=== PATIENT | male | born 1955 | race Caucasian/White ===

== ENCOUNTER 2020-08-22 09:43 | Outpatient (REF) | payer SELFPAY ==
[2020-08-22 11:33] LABS: SARS COV2 IgG Negative (Negative)
== END 2020-08-22 09:44 | disposition home or self-care (01) ==
LOC: HO.LNC 09:43
PROVIDERS: Visit Provider Pathology Anatomic Pathology & Clinical Pathology
DX: Z20.828 Contact with and (suspected) exposure to other viral communicable diseases (principal)
CPT/HCPCS: 86769

== ENCOUNTER → 2020-10-20 12:14 | Outpatient (BNVA) | payer OTHER, SELFPAY | PROVIDERS: PCP Internal Medicine; Visit Provider Internal Medicine Cardiovascular Disease | DX: I25.10 Atherosclerotic heart disease of native coronary artery without angina pectoris (principal); E78.5 Hyperlipidemia, unspecified | CPT/HCPCS: 93005 ==

== ENCOUNTER → 2020-12-16 08:45 | Outpatient (BNVA) | payer OTHER, SELFPAY | PROVIDERS: PCP Internal Medicine; Visit Provider Urology | DX: N40.1 Benign prostatic hyperplasia with lower urinary tract symptoms (principal); E78.5 Hyperlipidemia, unspecified | CPT/HCPCS: 51798; 81002 ==

== ENCOUNTER 2021-01-26 09:39 | Outpatient (REF) | payer OTHER, SELFPAY ==
[2021-01-26 10:34] LABS: MANUAL DIFF FLAG NO
[2021-01-26 10:47] LABS: Basophils Percent Auto 0.4 % (0-2); Eosinophils Absolute Auto 0.1 X10*3/uL (0.0-0.4); Eosinophils Percent Auto 1.5 % (0-4); Hemoglobin 16.7 g/dl (14.0-18.0); Imm Gran Abs Auto 0.03 X10*3/uL (0.00-0.03); Imm Gran Pct Auto 0.6 % (0.0-0.4); Lymphocytes Absolute Auto 1.4 X10*3/uL (1.2-4.9); Lymphocytes Percent Auto 25.9 % (20-40); Mean Corpuscular HGB Conc 34.1 g/dl (31.0-36.0); Mean Corpuscular Hemoglobin 31.6 pg (27.0-33.0); Mean Corpuscular Volume 92.6 fL (80-98); Mean Platelet Volume 11.3 fL (9.4-12.4); Monocytes Absolute Auto 0.5 X10*3/uL (0.1-1.2); Monocytes Percent Auto 9.6 % (2-11); Neutrophils Absolute Auto 3.4 X10*3/uL (2.0-8.3); Platelet Count 171 X10*3/uL (160-400); Red Blood Count 5.29 X10*6/uL (4.60-5.80); White Blood Count 5.4 X10*3/uL (4.8-10.8)
[2021-01-26 11:18] LABS: Alanine Aminotransferase 23 U/L (0-40); Albumin Level 4.4 g/dL (3.5-5.0); Alkaline Phosphatase 102 U/L (39-117); Anion Gap 13 (12-20); Aspartate Amino Transferase 18 U/L (5-37); Bilirubin Total 1.1 mg/dL (0.0-1.0); Blood Urea Nitrogen 17 mg/dL (9-16); Calcium 10.1 mg/dL (8.4-10.2); Carbon Dioxide 28 mmol/L (22-29); Chloride 107 mmol/L (96-108); Cholesterol 130 mg/dL; Estimated Glomerular Filt Rate > 60; Glucose Random 104 mg/dL (60-115); HDL Cholesterol 49 mg/dL; LDL Cholesterol Calculated 63 mg/dl; Sodium 143 mmol/L (135-145); Total Protein 6.8 g/dL (6.5-8.0); Triglycerides 94 mg/dL
[2021-01-26 11:41] LABS: Free T4 (Free Thyroxine) 0.91 ng/dL (0.71-1.85); Prostate Specific Antigen Scr 0.29 ng/mL (<0.05-4.0); Thyroid Stimulating Hormone 5.05 uIU/mL (0.32-4.0)
[2021-01-26 12:04] LABS: Folate 16.6 ng/mL (> or = 4.0); Vitamin B12 750 pg/mL (200-900)
[2021-02-07 14:21] LABS: Testosterone, Total 438 ng/dL (250-1100)
== END 2021-01-26 09:40 | disposition home or self-care (01) ==
LOC: HO.LAB 09:39
PROVIDERS: PCP Internal Medicine; Visit Provider Internal Medicine
DX: I25.10 Atherosclerotic heart disease of native coronary artery without angina pectoris (principal); E78.00 Pure hypercholesterolemia, unspecified; N40.1 Benign prostatic hyperplasia with lower urinary tract symptoms; R35.0 Frequency of micturition
CPT/HCPCS: 36415; 80053; 80061; 82607; 82746; 84153; 84403; 84439; 84443; 85025

== ENCOUNTER 2021-05-05 12:04 | Outpatient (REF) | payer OTHER, SELFPAY ==
[2021-05-05 13:58] LABS: Free T4 (Free Thyroxine) 1.08 ng/dL (0.71-1.85); Thyroid Stimulating Hormone 3.72 uIU/mL (0.32-4.0)
== END 2021-05-05 12:05 | disposition home or self-care (01) ==
LOC: HO.10HDL 12:04
PROVIDERS: Visit Provider Internal Medicine
DX: R79.89 Other specified abnormal findings of blood chemistry (principal)
CPT/HCPCS: 36415; 84439; 84443

== ENCOUNTER 2021-12-16 09:08 | Outpatient (REF) | payer OTHER, SELFPAY ==
[2021-12-23 00:16] LABS: Acetylcholine Receptor Binding <0.30 nmol/L
[2021-12-24 23:31] LABS: Acetylcholine Recept. Blocking <15 (<15)
[2021-12-29 22:21] LABS: Acetylcholine Recep Modulating 1
== END 2021-12-16 09:09 | disposition home or self-care (01) ==
LOC: HO.LAB 09:08
PROVIDERS: PCP Internal Medicine; Visit Provider Psychiatry & Neurology Neurology
DX: H53.2 Diplopia (principal)
CPT/HCPCS: 36415; 83519

== ENCOUNTER → 2021-12-17 08:27 | Outpatient (BNVA) | payer OTHER, SELFPAY | PROVIDERS: PCP Internal Medicine; Visit Provider Urology | DX: N40.1 Benign prostatic hyperplasia with lower urinary tract symptoms (principal); R35.0 Frequency of micturition | CPT/HCPCS: 51798 ==

== ENCOUNTER 2021-12-31 14:19 | Outpatient (REF) | payer OTHER, SELFPAY ==
--- NOTE | ~2021-12-31 | CT_ITS ---
EXAMINATION: CT ANGIOGRAM BRAIN, HEAD CLINICAL INFORMATION: Diplopia. COMPARISON: None available. TECHNIQUE: Test bolus sequences followed by intravenous administration 75 mL of Omnipaque 350 intravenous contrast. Helical imaging was performed in the axial plane from the skull base to the vertex. Delayed postcontrast imaging of the head was also performed. The data was processed at the ct scan technologist workstation for generation of MIP sequences. Three-dimensional volume rendered reformatted images were also generated at an offline 3-D workstation. The degree of stenosis determined by NASCET criteria. This CT examination was performed using dose optimization techniques as appropriate, variously including the following: *Automated exposure control *Adjustment of mA and/or kV according to patient size (this includes techniques or standardized protocols for targeted exams where dose is matched to indication/reason for exam; i.e. extremities or head) *Use of iterative reconstruction technique FINDINGS: There is a 1.9 cm enhancing extra-axial mass sharing a broad dural attachment with the dorsal left petromastoid ridge located anterior to the left cerebellar hemisphere, most compatible with a meningioma. No additional enhancing lesions intracranially. There is no intracranial hemorrhage, hydrocephalus, extra-axial surface collection, midline shift, or other herniation pattern. Reyes to white matter differentiation is diffusely maintained without evidence of an evolved acute territorial infarct. The basilar cisterns are preserved. No significant soft tissue abnormality. No acute osseous abnormality. The paranasal sinuses and the mastoid air cells are well aerated. The intradural right vertebral artery ends as the PICA, an anatomic variant. No significant arterial stenoses in no acute arterial occlusions intracranially. No aneurysms and no high flow vascular malformations appreciated. CT/CT angio head IMPRESSION: - There is a 1.9 cm enhancing extra-axial mass sharing a broad dural attachment with the dorsal left petromastoid ridge located anterior to the left cerebellar hemisphere, most compatible with a meningioma. - Otherwise unremarkable CTA of the head.
[2021-12-31 14:05] LABS: Blood Urea Nitrogen 15 mg/dL (9-16); Estimated Glomerular Filt Rate > 60
[2021-12-31] MEDS: iohexoL 350 MG/ML 100 ML INFUS..BTL IV (15:13)
== END 2021-12-31 14:20 | disposition home or self-care (01) ==
LOC: HO.CT 14:19
PROVIDERS: Visit Provider Psychiatry & Neurology Neurology
DX: H53.2 Diplopia (principal)
CPT/HCPCS: 36415; 70496; 82565; 84520; Q9967

== ENCOUNTER 2022-01-06 18:41 | Outpatient (REF) | payer OTHER, SELFPAY ==
--- NOTE | ~2022-01-06 | MR_ITS ---
MR BRAIN WITHOUT AND WITH CONTRAST CLINICAL INFORMATION: Left posterior fossa lesion. COMPARISON: CTA head December 31, 2021. TECHNIQUE: Multiplanar, multisequence MRI of the brain was obtained before and after the intravenous administration of 8 mL of Gadavist. FINDINGS: There is a stable appearing 1.7 cm x 1.2 cm x 1.9 cm homogeneously enhancing extra-axial mass along the dorsal left mastoid ridge slightly deforming the anterior aspect of the left cerebellum that is most compatible with a meningioma. There is no adjacent parenchymal edema. Mild chronic microangiopathy. There is no hydrocephalus, extra-axial surface collection, or herniation. The major flow voids at the skull base are preserved. There is no acute infarct on diffusion-weighted imaging. There is no intracranial hemorrhage on the gradient recalled echo acquisition. The midline structures are normal. The cerebellar tonsils are normally positioned. The cerebellum and brainstem are normal. The craniocervical junction is normal. Osseous marrow signal intensity is homogenous. The visualized soft tissues are unremarkable. There is moderate mucosal thickening within the dominant sphenoid sinus. MR/MR head/brain wo/w con IMPRESSION: There is a stable appearing 1.9 cm homogeneously enhancing extra-axial mass along the dorsal left mastoid ridge slightly deforming the anterior aspect of the left cerebellum that is most compatible with a meningioma. There is no adjacent parenchymal edema.
== END 2022-01-06 18:42 | disposition home or self-care (01) ==
LOC: HO.MRI 18:41
PROVIDERS: Visit Provider Psychiatry & Neurology Neurology
DX: M89.9 Disorder of bone, unspecified (principal)
CPT/HCPCS: 70553; A9585

== ENCOUNTER 2022-01-14 12:41 | Outpatient (REF) | payer OTHER, SELFPAY ==
--- NOTE | 2022-01-14 16:24 | MHC.AU.ANR ---
Adult Audiological Evaluation Date of Visit: 01/14/22 Reason for Appointment: Mr. Zavaleta was seen today for an audiological evaluation. He notes that last week he was diagnosed with a meningioma in the left side of his brain. His physician recommended an audiological evaluation to determine if the meningioma is affecting his hearing in the left ear. Mr. Zavaleta notes that he's recently been having diplopia, which prompted the MRI and finding of the meningioma. His physician has determined that the meningioma is not likely to be causing diplopia. There is also concern for Myasthenia Gravis (MG). Mr. Zavaleta notes that initial bloodwork/antibody testing is not suggestive of MG, but further testing will be done to make a better determination. Mr. Zavaleta denies any significant concerns for his hearing. He feels he typically hears well, but occasionally will have to ask his for repetition. 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 Mr. Zavaleta notes that over the past 20 years he has been consistently using hearing protection devices whenever he is in the presence of loud noise. He does not notice any differences in hearing sensitivity between his ears. He notes very mild tinnitus in both ears, that he only notices in quiet situations when he is thinking about it. Does patient feel they have a hearing loss?: No Has hearing been tested previously?: Yes Previous Hearing Test Results: Patients reports having a hearing evaluation 30 years ago that indicated normal hearing sensitivity. Previous results not available for review today. Ear History: Tinnitus/Ringing/Noises in Ears: Very mild, both ears History of occupational noise exposure?: Yes: Contractor, 40+ years Medical History: Medical History: Measles, Meningioma, diplopia Allergies: NKA Medication List: Doxycycline, Flomax, Atorvastatin, Vitamin D3 Otoscopy: Right Ear: Unremarkable Left Ear: Unremarkable Tympanometry: Tympanometry performed due to: To assess integrity of the middle ear system Right Ear: Normal Middle Ear System (Type A) Left Ear: Normal Middle Ear System (Type A) Hearing Evaluation: Transducer(s) Used: Insert Earphones, Bone Conduction Method: Conventional Audiometry Stimuli Used: Pure Tones Right Ear: Description of Hearing: Normal hearing from 250-3000 Hz, sloping to a mild sensorineural 4000 Hz, rising to normal hearing from 7175-5254 Hz. Left Ear: Description of Hearing: Normal hearing from 250-3000 Hz, sloping to a moderate sensorineural hearing loss at 4000 Hz, rising to a mild hearing loss at 6000 Hz, and normal hearing at 8000 Hz. Hearing in the left ear is worse than the right ear by 25 dBHL at 4000 Hz and 15 dBHL at 6000 Hz. Speech Recognition Threshold (SRT): Method Used: Monitored Live Voice Stimuli Used: Spondee Words Right Ear: 15 dBHL Left Ear: 5 dBHL Word Discrimination: Method: Recorded Lists Word Lists Used: NU-6 Right Ear: 100% at 55 dBHL Left Ear: 96% at 60 dBHL Interpretation of Results: Asymmetrical high-frequency sensorineural hearing loss, left ear worse than right. It is possible that patient's meningioma is impacting his hearing in the left ear, though today's testing is not able to determine causality of Mr. Zavaleta's hearing loss. Recommendations: Audiological re-evaluation in one year to monitor asymmetrical hearing loss, or sooner if changes in hearing are noted or new symptoms arise. Amplification is not warranted at this time. Diagnosis: Primary Diagnosis: H90.3 Bilateral Sensorineural Hearing Loss Services Performed: Services Performed: Comprehensive Audiological Evaluation (CPT 04163) Tympanometry (CPT 52052) Signature: Provider: Oneal Arreguin, CCC-A
== END 2022-01-14 12:42 | disposition home or self-care (01) ==
LOC: HO.SH 12:41
PROVIDERS: Visit Provider Psychiatry & Neurology Neurology
DX: Z01.118 Encounter for examination of ears and hearing with other abnormal findings (principal); H90.3 Sensorineural hearing loss, bilateral
CPT/HCPCS: 92557; 92567

== ENCOUNTER 2022-01-27 11:09 | Outpatient (REF) | payer OTHER, SELFPAY ==
[2022-01-27 11:51] LABS: MANUAL DIFF FLAG NO
[2022-01-27 13:22] LABS: Basophils Percent Auto 0.4 % (0-2); Eosinophils Absolute Auto 0.1 X10*3/uL (0.0-0.4); Eosinophils Percent Auto 0.7 % (0-4); Hemoglobin 16.5 g/dl (14.0-18.0); Imm Gran Abs Auto 0.02 X10*3/uL (0.00-0.03); Imm Gran Pct Auto 0.3 % (0.0-0.4); Lymphocytes Absolute Auto 1.3 X10*3/uL (1.2-4.9); Lymphocytes Percent Auto 17.6 % (20-40); Mean Corpuscular HGB Conc 34.4 g/dl (31.0-36.0); Mean Corpuscular Hemoglobin 30.9 pg (27.0-33.0); Mean Corpuscular Volume 89.9 fL (80.0-98.0); Monocytes Absolute Auto 0.6 X10*3/uL (0.1-1.2); Monocytes Percent Auto 8.8 % (2-11); Neutrophils Absolute Auto 5.1 x10*3/uL (2.0-8.3); Neutrophils Percent Auto 72.2 % (45-73); Platelet Count 156 X10*3/uL (160-400); Red Blood Count 5.34 X10*6/uL (4.60-5.80); Red Cell Distribution Width 11.9 % (11.0-16.0); White Blood Count 7.1 X10*3/uL (4.8-10.8)
[2022-01-27 13:54] LABS: Alanine Aminotransferase 20 U/L (0-40); Albumin Level 4.2 g/dL (3.5-5.0); Alkaline Phosphatase 98 U/L (39-117); Anion Gap 13 (12-20); Aspartate Amino Transferase 20 U/L (5-37); Bilirubin Total 0.9 mg/dL (0.0-1.0); Blood Urea Nitrogen 14 mg/dL (9-16); Calcium 10.2 mg/dL (8.4-10.2); Carbon Dioxide 29 mmol/L (22-29); Chloride 105 mmol/L (96-108); Cholesterol 132 mg/dL; Estimated Glomerular Filt Rate > 60; Glucose Random 98 mg/dL (60-115); HDL Cholesterol 50 mg/dL; LDL Cholesterol Calculated 65 mg/dl; Potassium 5.2 mmol/L (3.3-5.1); Sodium 142 mmol/L (135-145); Total Protein 6.8 g/dL (6.5-8.0); Triglycerides 89 mg/dL
[2022-01-27 14:08] LABS: Estimated Average Glucose 114 mg/dL; Hemoglobin A1c % 5.6 %
[2022-01-27 14:18] LABS: Free T4 (Free Thyroxine) 1.06 ng/dL (0.71-1.85); Prostate Specific Antigen Scr 0.16 ng/mL (<0.05-4.0); Thyroid Stimulating Hormone 4.72 uIU/mL (0.32-4.0)
[2022-01-27 16:21] LABS: Folate 15.7 ng/mL (> or = 4.0); Vitamin B12 705 pg/mL (200-900)
== END 2022-01-27 11:10 | disposition home or self-care (01) ==
LOC: HO.LAB 11:09
PROVIDERS: PCP Internal Medicine; Visit Provider Internal Medicine
DX: Z12.5 Encounter for screening for malignant neoplasm of prostate (principal); I25.10 Atherosclerotic heart disease of native coronary artery without angina pectoris; R73.02 Impaired glucose tolerance (oral); E78.00 Pure hypercholesterolemia, unspecified
CPT/HCPCS: 36415; 80053; 80061; 82607; 82746; 83036; 84153; 84439; 84443; 85025

== ENCOUNTER 2022-02-15 12:54 | Outpatient (REF) | payer OTHER, SELFPAY ==
--- NOTE | ~2022-02-15 | CT_ITS ---
EXAMINATION: CT CHEST WITHOUT CONTRAST CLINICAL INFORMATION: Solitary pulmonary nodule. COMPARISON: CT scan of the chest dated 04/18/2019, 04/19/2018. CT Calcium Scoring dated 10/18/2017. TECHNIQUE: Multidetector volumetric CT imaging of the chest was obtained noncontrast. Sagittal and coronal reformations were obtained. This CT examination was performed using dose optimization techniques as appropriate, variously including the following: *Automated exposure control *Adjustment of mA and/or kV according to patient size (this includes techniques or standardized protocols for targeted exams where dose is matched to indication/reason for exam; i.e. extremities or head) *Use of iterative reconstruction technique DLP: 162.2 mGy-cm. FINDINGS: LUNGS: Again seen are several scattered bilateral calcified granulomas. Previously identified solid noncalcified pulmonary nodules are also seen, unchanged dating back to 04/19/2018, consistent with benign findings, including the following are seen on series 7: Right upper lobe -3 mm solid noncalcified nodule along the periphery of an airway, image 217. -4 mm solid noncalcified nodule in the inferolateral periphery, image 256. Based on the left major fissure -4 mm solid noncalcified nodule, likely a fissural based lymph node, image 297. Right middle lobe -6 mm solid noncalcified nodule, image 399. Left lower lobe -3 mm solid noncalcified nodule in the lateral base, image 404. No significant new or enlarging focal lung nodule or mass. No effusion or pneumothorax. Central airways patent. LYMPHOVASCULAR STRUCTURES: Aortic and heart size normal. Trace pericardial fluid, likely physiologic. Mild left anterior descending coronary artery calcifications. No mediastinal, hilar or axillary adenopathy or free fluid collection. THYROID GLAND: Unremarkable to the extent included. UPPER ABDOMEN: Scattered circumscribed low-attenuation masses in the liver again seen, unchanged dating back to 04/18/2019, consistent with benign findings, likely cysts. Included portions of the solid organs in the upper abdomen otherwise unremarkable. BONES: Mild S-shaped thoracic scoliosis and minimal vertebral endplate spurring seen in the mid and lower thoracic spine. There is mild anterior T7 and T8 vertebral body height loss, unchanged from prior exam. Multiple Schmorl's nodes are seen in the mid and lower thoracic spine. Findings may represent sequelae of Scheuermann's disease. No suspicious focal findings. CT/CT chest wo con IMPRESSION: 1. No significant change in scattered bilateral calcified and noncalcified granulomas dating back to 04/19/2018. Majority of findings were also included on the prior calcium scoring CT scan from 10/18/2017. This long-term stability and findings is consistent with benign pulmonary nodules. Per the Fleischner criteria, no additional follow-up is warranted. 2. No new or enlarging pulmonary nodule or mass. 3. Mild left anterior descending coronary artery calcifications. 4. Long-term stable low-attenuation masses in the liver, consistent with benign findings, likely cysts.
== END 2022-02-15 12:55 | disposition home or self-care (01) ==
LOC: HO.CT 12:54
PROVIDERS: Visit Provider Internal Medicine
DX: R91.1 Solitary pulmonary nodule (principal)
CPT/HCPCS: 71250

== ENCOUNTER 2022-07-19 08:01 | Outpatient (REF) | payer OTHER, SELFPAY ==
--- NOTE | ~2022-07-19 | MR_ITS ---
EXAMINATION: MR BRAIN WITHOUT AND WITH CONTRAST CLINICAL INFORMATION: Follow-up benign neoplasm of the meninges. COMPARISON: Brain MRI from 01/06/2022 TECHNIQUE: Multiplanar, multisequence imaging of the brain was performed without and with intravenous administration of 7.5 mL of Gadavist. FINDINGS: A presumed meningioma with homogeneous enhancement and T2 isointense to adjacent brain parenchyma is stable along the dorsal left petrous bone in the posterior fossa, measuring approximately 1.5 x 1.4 x 1.6 cm in size. No edema is seen in the left cerebellar hemisphere or left middle cerebellar peduncle. No diffusion abnormalities are identified to suggest an acute infarct. The ventricles are normal in size. No new mass effect or midline shift is seen. No brain parenchymal signal abnormality is noted. No extra-axial fluid collections are seen. The brainstem is normal. No abnormal parenchymal enhancement evident. There is nonspecific minimal linear right frontoparietal pachymeningeal enhancement which was not present on the previous exam. The gradient refocused acquisition is normal. The craniovertebral junction, marrow signal, and midline structures are normal. The major intracranial flow voids at the level of the [place] are preserved. The dural venous sinus flow voids are maintained. The mastoid air cells are well aerated. There is chronic significant mucosal thickening in the right sphenoid sinus cavity, also noted on the prior exam. MR/MR head/brain wo con IMPRESSION: 1. Stable presumed meningioma in the left aspect of the posterior fossa without mass effect or parenchymal edema. 2. New minimal linear right frontoparietal pachymeningeal enhancement of indeterminate clinical significance. Otherwise, no acute process. 3. Chronic severe right sphenoid sinus disease.
[2022-07-19 08:41] LABS: Anion Gap 16 (12-20); Blood Urea Nitrogen 15 mg/dL (9-16); Calcium 9.8 mg/dL (8.4-10.2); Carbon Dioxide 26 mmol/L (22-29); Chloride 104 mmol/L (96-108); Estimated Glomerular Filt Rate > 60; Glucose Random 123 mg/dL (60-115); Potassium 5.2 mmol/L (3.3-5.1); Sodium 141 mmol/L (135-145)
[2022-07-19 09:05] LABS: Free T4 (Free Thyroxine) 1.19 ng/dL (0.71-1.85); Thyroid Stimulating Hormone 4.88 uIU/mL (0.32-4.0)
== END 2022-07-19 08:02 | disposition home or self-care (01) ==
LOC: HO.MRI 08:01
PROVIDERS: Visit Provider Internal Medicine
DX: R79.89 Other specified abnormal findings of blood chemistry (principal); D32.9 Benign neoplasm of meninges, unspecified
CPT/HCPCS: 36415; 70551; 80048; 84439; 84443; A9585

== ENCOUNTER → 2022-10-21 14:34 | Outpatient (BNVA) | payer OTHER, SELFPAY | PROVIDERS: PCP Internal Medicine; Referring Provider Internal Medicine; Visit Provider Internal Medicine Cardiovascular Disease | DX: I25.10 Atherosclerotic heart disease of native coronary artery without angina pectoris (principal) | CPT/HCPCS: 93005 ==

== ENCOUNTER → 2022-12-23 13:17 | Outpatient (BNVA) | payer OTHER, SELFPAY | PROVIDERS: PCP Internal Medicine; Visit Provider Urology | DX: N40.1 Benign prostatic hyperplasia with lower urinary tract symptoms (principal); N13.8 Other obstructive and reflux uropathy; R35.0 Frequency of micturition; N48.6 Induration penis plastica; Z79.82 Long term (current) use of aspirin; Z79.899 Other long term (current) drug therapy | CPT/HCPCS: 51798 ==

== ENCOUNTER 2023-01-10 09:36 | Day surgery (SDC) | payer OTHER, SELFPAY ==
[2023-01-10 09:51] VITALS: BMI 24.3
[2023-01-10 10:20] VITALS: BP 171/98; PULSE 66; RESP 15; TEMP 36.6; O2SAT 98
[2023-01-10] MEDS: Lactated Ringers 1,000 ML 50 ML IVCONT (10:22)
--- NOTE | 2023-01-10 10:53 | HO.ANESPROP2 ---
[facility]LY [facility] Active Problems Active Problems: All Active Problems (Updated 01/10/23 @ 09:48 by Heaven Pierce, RN) Annual physical exam (Acute) Impaired glucose tolerance (Acute) Inguinal hernia unilateral, non-recurrent (Acute) TSH elevation (Acute) Meningioma (Acute) Callus of foot (Acute) Blood pressure elevated without history of HTN (Acute) Sphenoid sinusitis (Acute) Pulmonary nodule (Acute) Benign prostatic hyperplasia with lower urinary tract symptoms (Acute) CAD (coronary artery disease) (Acute) Hyperlipidemia (Acute) Past Medical History Medical History (Updated 01/10/23 @ 09:48 by Heaven Pierce, RN) Allergic rhinitis Benign prostatic hyperplasia with lower urinary tract symptoms CAD (coronary artery disease) DVT (deep venous thrombosis) Fatty liver Feeling of incomplete bladder emptying Fracture of right tibia and fibula History of meningioma Hx of diplopia Hyperlipidemia Peyronie's disease Psoriasis Pulmonary nodule Rosacea Vitamin D deficiency Family History Family History Father CVD (cardiovascular disease) Family history of problems with anesthesia: No Surgical History Surgical History (Updated 01/10/23 @ 09:48 by Heaven Pierce RN) History of prostate surgery History of tonsillectomy Hx of colonoscopy S/P Mohs surgery for basal cell carcinoma History of Problems with Anesthesia: No Social History Social History Housing: House Alcohol intake: current Alcohol intake frequency: a few times a month Patient Tobacco Use Status: Never used Tobacco e-Cigarette/Vaping Use: Never Used Second Hand Smoke Exposure: No Use of substances other than those prescribed or required for medical reasons: No Are you DNR?: No Advance Directives: No Advance Directives Information Provided: Yes Current occupational status: retired Cognitive needs: No Hearing needs: No Vision needs: Yes Meds Allergies Allergy/AdvReac Type Severity Reaction Status Date / Time No Known Allergies Allergy Verified 12/23/22 13:28 Active Medications: Current Medications Lactated Ringer's (Lr) 1,000 mls @ 50 mls/hr IVCONT .Q20H KEVIN Last Admin: 01/10/23 10:22 Dose: 50 mls/hr Sodium Biphosphate/Sodium Phosphate (Sodium Phosphate,[place]-Dibasic 133 Ml Enema) 133 ml NV ONCE PRN PRN Reason: Poor Colonoscopy Prep Results Home Medications Medication Instructions Recorded Confirmed Last Taken Type doxycycline hyclate 20 mg tablet 20 mg PO BID 01/26/21 10/21/22 Unknown History cholecalciferol (vitamin D3) 25 25 mcg PO DAILY 01/27/22 10/21/22 Unknown History mcg (1,000 unit) capsule cyanocobalamin (vitamin B-12) 1,000 mcg PO DAILY 01/27/22 10/21/22 Unknown History 1,000 mcg capsule folic acid-vitamin B6-vitamin B12 tab PO 01/27/22 10/21/22 Unknown History 2.3 mg-24.5 mg-2 mg tablet vitamin A 2,400 mcg capsule 2,400 mcg PO DAILY 01/27/22 10/21/22 Unknown History coenzyme Q10 50 mg capsule (Co 50 mg PO DAILY 03/22/22 10/21/22 Unknown History Q-10) vitamin E 200 unit capsule 200 unit PO DAILY 03/22/22 10/21/22 01/03/23 History vitamin K2 100 mcg capsule 100 mcg PO DAILY 03/22/22 10/21/22 Unknown History aspirin 81 mg tablet,delayed 81 mg PO .twice a week 10/21/22 10/21/22 01/03/23 History release (Adult Aspirin Regimen) Exam Exam Date and Time: January 10, 2023 1053 Height,Weight and Vital Signs: Height 5 ft 9 in Weight 74.843 kg Last Vital Signs Temp 97.8 F 01/10/23 10:20 Pulse 66 01/10/23 10:20 Resp 15 01/10/23 10:20 BP 171/98 H 01/10/23 10:20 Pulse Ox 98 01/10/23 10:20 O2 Del Method Room Air 01/10/23 10:20 Airway Mallampati Class: II Neck ROM: Full Heart: rr Lungs: cta Assessment and Plan Assessment Anesthesia Assessment: Anesthesia Plan Discussed and Chart Reviewed Final Anesthetic Review Family History of Problems with Anesthesia: No History of Problems with Anesthesia: No NPO: Yes ASA Class: II Final Preanesthetic Review: No Changes in Pt Med Stat, Meds/Allgs Chart Reviewed, Consent Obtained/Reviewed and Anes Risks/Benef Reviewed Patient Risk: Low Procedure Risk: Low Anesthetic Plan Anesthetic Plan: MAC: Disposition: Standard PACU
[2023-01-10 11:30] VITALS: BP 73/42; PULSE 48; RESP 16; TEMP 36.1; O2SAT 95
--- NOTE | 2023-01-10 11:33 | P.BOP_ITS ---
Brief Operative Note Date of Service: 01/10/23 Pre-op diagnosis: Dysphagia, screening Post-op diagnosis: other (Esophageal ring, GERD, Hiatal hernia, Polyps) Procedure: EGD with Balloon Dilation with an 18-19-20mm balloon, and biopsies; Colonoscopy to the cecum with hot snare polypectomy x 3 and bx/removal of polyp x 1. Surgeon: Seb Nunez Anesthesia: MAC Was an Wood Tank Builder used for this Procedure?: No Estimated blood loss (mL): 2.0 Pathology: other (A. Gastric antrum B. EG Junction at 39cm C. Ascending colon polyps D. Transverse colon polyps) Condition: stable Disposition: PACU
[2023-01-10 11:44] VITALS: BP 111/64; PULSE 43; RESP 16; O2SAT 98
[2023-01-10 11:58] VITALS: BP 118/67; PULSE 44; RESP 14; TEMP 36.2; O2SAT 98
--- NOTE | 2023-01-10 15:30 | OP_ITS ---
DATE OF SERVICE: 01/10/2023 SURGEON: Seb Nunez MD INDICATIONS: The patient presents for evaluation of intermittent dysphagia, personal history of tubular adenomas of the colon, and colorectal cancer screening. Full consent has been obtained from him for this including risks of bleeding and perforation. PREOPERATIVE DIAGNOSIS: POSTOPERATIVE DIAGNOSIS: PROCEDURE PERFORMED: Esophagogastroduodenoscopy with balloon dilation of gastroesophageal junction and biopsies, and colonoscopy to the cecum with hot snare polypectomy x 3 and biopsy and removal of polyp. ESTIMATED BLOOD LOSS: COMPLICATIONS: ANESTHESIA: Monitored anesthesia care. ASSISTANTS: SPECIMENS: PREOPERATIVE DIAGNOSES: Dysphagia, personal history of tubular adenomas of the colon and colorectal cancer screening. POSTOPERATIVE DIAGNOSES: Dysphagia, personal history of tubular adenomas of the colon and colorectal cancer screening, nonobstructing esophageal ring, mild reflux, hiatal hernia, mild gastritis, colon polyps, diverticulosis and internal hemorrhoids. DESCRIPTION OF PROCEDURE: The patient was placed in the left lateral decubitus position. The Olympus video gastroscope was passed in the posterior oropharynx and upper esophagus under direct vision. The scope was passed slowly to the distal esophagus. The gastroesophageal junction appeared at 39 cm. This area was notable for some edema, what appeared to be a nonobstructing ring, some mild irregularity, and as well as some minimal friability. The scope easily entered into the stomach. There was a small hiatal hernia. Scope was advanced to the pylorus and the duodenum was cannulated to the descending portion. The duodenum including the bulb appeared normal without mass or ulceration. The scope was withdrawn back in the stomach. The gastric antrum has some areas of erythema, edema and friability. There were no erosions or ulcerations. There was good peristasis. The scope was retroflexed visualizing the proximal stomach carefully, which appeared normal, without any sign of mass or ulceration. The scope was straightened. Biopsies were obtained from the gastric antrum. The scope was withdrawn back in the esophagus. I did use a [employer] scientific incremental balloon to dilate the gastroesophageal junction from 18 mm to 19 mm to 20 mm at the recommended pressure for between 30 and 60 seconds each. Post-dilation, there was definitely some heme noted. I did obtain some biopsies of the EG junction at 39 cm as well. Proximal to this, esophageal mucosa appeared normal. Scope was withdrawn from the patient. He was turned around for the colonoscopy. The digital rectal exam revealed no abnormalities. The Olympus video pediatric colonoscope was entered into the rectum and advanced easily to the cecum. Once in the cecum, I did identify normal-appearing cecal pouch with appendiceal orifice, and a normal appearing ileocecal valve. There was transillumination of light deep in the right lower quadrant. The entire cecum and ileocecal valve appeared normal. The scope was then slowly withdrawn assessing all mucosal surfaces carefully. Prepration was excellent. In the proximal ascending colon there were two polyps approximately 6 or 8 mm in diameter. These were both removed by hot snare polypectomy and recovered by suction. The polypectomy site appeared clean, without any sign of residual polyp nor bleeding. In ttransverse colon was a 3 mm polyp removed by cold biopsy forceps. In the same area, there was an approximately 6 mm polyp which was removed by hot snare polypectomy and recovered by suction. The polypectomy site appeared clean, without any sign of residual polyp nor bleeding. I did not visualize any other polyps, colitis, nor angiodysplasia. There was a mild amount of sigmoid diverticulosis. In the rectum, the scope was retroflexed visualizing small internal hemorrhoids, but no other pathology. The rectal mucosa appeared normal. The scope was straightened out and withdrawn from the patient. He tolerated both procedures well and was returned to the recovery area in stable condition. IMPRESSION: 1. Mild nonobstructing distal esophageal ring, status post balloon dilation. 2. Mild gastroesophageal reflux. 3. Hiatal hernia. 4. Mild gastritis. 5. Colon polyps. 6. Diverticulosis. 7. Internal hemorrhoids. PLAN: The results of the biopsies will be checked. I would recommend a repeat colonoscopy in 5 years. Given the upper endoscopy findings and today's procedure, I will send him home with a prescription to use Omeprazole 20 mg daily for two months and then p.r.n. afterwards. He was advised not to use any aspirin nor NSAIDs for at least a week. If it turns out that he does need the omeprazole chcf, he can certainly continue that as well. MD MODESTO Vaca/REGGIE / [phone] MTDD
== END 2023-01-10 12:47 | disposition home or self-care (01) ==
PROVIDERS: PCP Internal Medicine; Visit Provider Internal Medicine
PROC: 0DJD8ZZ Inspection of Lower Intestinal Tract, Via Natural or Artificial Opening Endoscopic (ICD-10-PCS; CPT 45378; principal; 2023-01-10 10:30)
PROC: (CPT 45385; 2023-01-10 10:30)
DX: Z12.11 Encounter for screening for malignant neoplasm of colon (principal); D12.2 Benign neoplasm of ascending colon; D12.3 Benign neoplasm of transverse colon; K57.30 Diverticulosis of large intestine without perforation or abscess without bleeding; K64.8 Other hemorrhoids; Z86.010 Personal history of colon polyps; R13.19 Other dysphagia; K22.2 Esophageal obstruction; K21.9 Gastro-esophageal reflux disease without esophagitis; K29.70 Gastritis, unspecified, without bleeding; K44.9 Diaphragmatic hernia without obstruction or gangrene
CPT/HCPCS: 45385; 45380; 43249; 43239; 88305; 88342; C1726

== ENCOUNTER 2023-01-14 07:43 | Outpatient (REF) | payer OTHER, SELFPAY ==
--- NOTE | ~2023-01-14 | CT_ITS ---
EXAMINATION: CT MAXILLOFACIAL WITHOUT CONTRAST CLINICAL INFORMATION: Sinonasal polyp. COMPARISON: None. TECHNIQUE: Multidetector helical imaging was performed in the axial plane with generation of coronal and sagittal reformatted images. This CT examination was performed using dose optimization techniques as appropriate, variously including the following: *Automated exposure control *Adjustment of mA and/or kV according to patient size (this includes techniques or standardized protocols for targeted exams where dose is matched to indication/reason for exam; i.e. extremities or head) *Use of iterative reconstruction technique DLP: 110 mGy-cm. FINDINGS: The frontal sinuses are clear. The ethmoid air cells are clear. There is moderate circumferential lobular mucosal thickening along the right sphenoid sinus ceja with internal aerated secretions and opacification of the sphenoethmoidal recess. There is chronic osteitis of the sphenoid sinus ceja. The left sphenoid sinus is clear. There is mild lobular mucosal thickening along the left more than right maxillary sinus floors. The ethmoidal infundibula are patent. There is rightward deviation of the nasal septum. The ethmoid roofs are symmetric. The lamina papyracea are intact. The carotid impressions are covered with bone. No maxillary periapical disease is seen. The mastoid air cells and visualized middle ear cavities are well aerated. The orbits are normal. The TMJs are unremarkable. The imaged portions of the brain demonstrate no acute abnormality. CT/CT sinus wo IV con IMPRESSION: Moderate circumferential lobular mucosal thickening along the right sphenoid sinus ceja with internal aerated secretions and opacification of the sphenoethmoidal recess. 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 Mild lobular mucosal thickening along the left more than right maxillary sinus floors. Rightward deviation of the nasal septum.
== END 2023-01-14 07:44 | disposition home or self-care (01) ==
LOC: HO.CT 07:43
PROVIDERS: PCP Internal Medicine; Visit Provider Otolaryngology
DX: J33.0 Polyp of nasal cavity (principal)
CPT/HCPCS: 70486

== ENCOUNTER 2023-04-07 07:51 | Outpatient (REF) | payer OTHER, SELFPAY | END 2023-04-07 07:52 | disposition home or self-care (01) | LOC: HO.LAB 07:51 | PROVIDERS: PCP Internal Medicine; Visit Provider Internal Medicine | DX: Z12.5 Encounter for screening for malignant neoplasm of prostate (principal); I25.10 Atherosclerotic heart disease of native coronary artery without angina pectoris; R79.89 Other specified abnormal findings of blood chemistry; R73.02 Impaired glucose tolerance (oral); E78.00 Pure hypercholesterolemia, unspecified | CPT/HCPCS: 36415; 80053; 80061; 82607; 82746; 83036; 84153; 84439; 84443; 85025; 86376 ==

== ENCOUNTER 2023-04-15 11:20 | Outpatient (AMB) | payer OTHER, SELFPAY ==
[2023-04-15 11:23] VITALS: BP 152/78; PULSE 75; O2SAT 98; BMI 24.7
--- NOTE | 2023-04-15 11:23 | A.OFFPC_ITS ---
Vital Signs 04/15/23 11:23 Height 5 ft 9 in Weight 167 lb BMI 24.7 BP 152/78 H Blood Pressure Location Lt brachial Position Sitting Pulse 75 Pulse Source Pulse Oximeter Pulse Oximetry (%) 98 Oxygen Delivery Method Room Air Intake Visit Reasons: PE Allergies No Known Allergies Allergy (Verified 04/15/23 11:23) Medication List - Last Reconciled 04/15/23 by Radha Redmond MD aspirin (Adult Aspirin Regimen) 81 mg PO .twice a week atorvastatin 20 mg PO DAILY 90 days cholecalciferol (vitamin D3) 25 mcg PO DAILY coenzyme Q10 (Co Q-10) 50 mg PO DAILY cyanocobalamin (vitamin B-12) 1,000 mcg PO DAILY doxycycline hyclate 20 mg PO BID omeprazole 20 mg PO DAILY tamsulosin 0.4 mg PO BEDTIME 90 days vitamin A 2,400 mcg PO DAILY vitamin E 200 units PO DAILY vitamin K2 100 mcg PO DAILY Tobacco use date assessed: 03/16/23 Fall risk assessment: No Falls in past year Last assessed Fall Risk: 04/15/23 Dental Screening Dental Screen Date: 04/15/23 Did you have a dental visit in the last 12 months?: Yes Did you have a dental problem in the last 6 months where you did not have access to dental care?: No Was dental information given to patient?: Patient has dentist HPI PE HPI Details 68-year-old male with impaired glucose tolerance Sagastume's esophagus BPH coronary artery disease hypercholesterolemia last seen in March 2023. During that time noted to have an elevated blood pressure and was advised to follow up and monitor. Patient is here for physical exam colonoscopy is up-to-date. BP has been at home [facility] Medical History (Updated 03/16/23 @ 09:19 by Radha Redmond MD) Allergic rhinitis Benign prostatic hyperplasia with lower urinary tract symptoms CAD (coronary artery disease) DVT (deep venous thrombosis) Fatty liver Feeling of incomplete bladder emptying Fracture of right tibia and fibula History of meningioma Hx of diplopia Hyperlipidemia Peyronie's disease Psoriasis Pulmonary nodule Rosacea Vitamin D deficiency Surgical History (Updated 01/10/23 @ 09:48 by Heaven Pierce RN) History of prostate surgery History of tonsillectomy Hx of colonoscopy S/P Mohs surgery for basal cell carcinoma Family History (Updated 03/16/23 @ 09:01 by Delisa Wolf CMA) Father CVD (cardiovascular disease) Social History (Updated 04/15/23 @ 11:42 by Radha Redmond MD) Housing: House Alcohol intake: current Alcohol intake frequency: a few times a month Patient Tobacco Use Status: Never used Tobacco e-Cigarette/Vaping Use: Never Used Second Hand Smoke Exposure: No Current occupational status: retired Cognitive needs: No Hearing needs: No Vision needs: Yes Questionnaire PHQ-9 Over the last 2 weeks, how often have you been bothered by any of the following problems? 1. Little interest or pleasure in doing things: not at all 2. Feeling down, depressed, or hopeless: not at all 3. Trouble falling or staying asleep, or sleeping too much: not at all 4. Feeling tired or having little energy: not at all 5. Poor appetite or overeating: not at all 6. Feeling bad about yourself - or that you are a failure or have let yourself or your family down: not at all 7. Trouble concentrating on things, such as reading the newspaper or watching television: not at all 8. Moving or speaking so slowly that other people could have noticed. Or the opposite - being so fidgety or restless that you have been moving around a lot m ore than usual: not at all 9. Thoughts that you would be better off or of hurting yourself in some way: not at all Total score: 0 Depression Screening Interpretation: Negative Source: Developed by Drs. Seb Rausch, Franklyn Davenport and colleagues, with an educational joni from [employer]. Thrive Questionnaire Date Thrive assessed: 03/16/23 AUDIT C Alcohol Use Questionnaire (AUDIT-C) 1. How often do you have a drink containing alcohol?: 2-4 times a month 2. How many drinks containing alcohol do you have on a typical day when you are drinking?: 1 or 2 3. How often do you have six or more drinks on one occasion?: Never Total Score: 2 LEONOR-7 AMB Questionnaire LEONOR-7 Date LEONOR - 7 assessed: 03/16/23 Source: Developed by Drs. Seb Rausch, Franklyn Davenport and colleagues, with an educational joni from [employer]. Review of Systems Const Denies poor appetite and Denies weakness Eyes Denies no additional complaints ENT Reports Normal hearing present, Denies dizziness, Denies nasal congestion, Denies tinnitus and Denies sore throat Card Denies chest pain, Denies syncope, Denies rapid heart rate and Denies dyspnea Resp Denies cough and Denies dyspnea GI Denies change in stool character, Reports constipation, Denies diarrhea, Denies nausea and Denies vomiting Denies dysuria and Denies urinary frequency Neuro Reports Normal hearing present, Denies confusion, Denies dizziness, Denies syncope and Denies weakness Psych Denies confusion Physical exam (Primary Care) Vital Signs: Last Vital Signs Pulse 75 04/15/23 11:23 BP 152/78 H 04/15/23 11:23 Pulse Ox 98 04/15/23 11:23 Oxygen Delivery Method Room Air 04/15/23 11:23 BMI result Body Mass Index 24.7 Tobacco/Smoking Status: Tobacco use Status Tobacco use date assessed 03/16/23 04/15/23 11:29 Patient Tobacco Use Status Never used Tobacco 04/15/23 11:29 e-Cigarette/Vaping Use Never Used 04/15/23 11:29 PHQ-9: PHQ-9 Score PHQ-9: Total score 0 04/15/23 11:29 Depression Screening Interpretation: Negative Thrive Assessment: Date of Thrive Assessment Date Thrive assessed 03/16/23 04/15/23 11:29 Const General: No confusion Orientation/consciousness: No confusion HENMT Head: Yes normocephalic Ears: external ears normal and TM's normal bilaterally Face and sinus: Yes normal facial exam Mouth: moist mucous membranes Throat: Yes tonsils normal Eyes Conjunctivae: conjunctivae normal Pupils: Equal, round and reactive pupils present and Pupil accommodation reflex normal Direct Ophthalmoscopy: normal light reflex Neck Neck: No lymphadenopathy Thyroid: Thyroid normal Chest Chest palpation & inspection: normal inspection of the chest Resp Effort & Inspection: normal respiratory effort and no audible wheezes Auscultation: clear to auscultation bilaterally, no crackles, no wheezes and lung sounds not diminished Cardio Rate: regular rate Rhythm: regular rhythm Peripheral pulses: radial pulses present and dorsalis pedis present GI Other: PAtient has seen Urology and recent colon test Palpation (GI): no masses Auscultation: normal bowel sounds and normoactive bowel sounds Rectal Exam - Male: Yes deferred Other: declined Skin General skin exam: no rashes or lesions noted Rashes: no rashes Neuro General: No confusion Cranial nerves: Yes Equal, round and reactive pupils present and Yes Normal hearing present Cognition (Neuro): normal cognition Gait exam (Neuro): Normal gait present Motor exam (neuro): 5/5 motor strength present throughout Deep tendon reflexes (DTR's): Right brachioradialis reflex intensity grade: 2+, Left brachioradialis reflex intensity grade: 2+, Right patellar reflex intensity grade: 2+ and Left patellar reflex intensity grade: 2+ Extrem General: No edema Assessment and Plan Assessment & Plan (1) Annual physical exam: Code(s): Z00.00 - Encounter for general adult medical examination without abnormal findings (2) Barretts esophagus: Code(s): K22.70 - Sagastume's esophagus without dysplasia Plan: Avoid the foods that causes that usually spicy foods, tomato products, juices, coffee, soda and foods that your sensitive to. After eating do not lie down, allow 3-4 hours before in lie down. And keep the head of bed above 30 degrees to avoid the acid from going up. Patient takes omeprazole 20 mg once a day (3) Impaired glucose tolerance: Code(s): R73.02 - Impaired glucose tolerance (oral) Plan: Decrease the amount of carbohydrate intake, pasta, bread, rice and potatoes are all sugar and that is aside from all the sweet stuff, remember that fruits are good but they are Sweet also. Normal hemoglobin A1c (4) Blood pressure elevated without history of HTN: Code(s): R03.0 - Elevated blood-pressure reading, without diagnosis of hypertension Plan: Continue to monitor blood pressure (5) Benign prostatic hyperplasia with lower urinary tract symptoms: Comment: Dr. Lee Code(s): N40.1 - Benign prostatic hyperplasia with lower urinary tract symptoms Qualifiers: Lower urinary tract symptom detail: urinary frequency Qualified Code(s): N40.1 - Benign prostatic hyperplasia with lower urinary tract symptoms; R35.0 - Frequency of micturition Plan: Continue with present medication (6) CAD (coronary artery disease): Code(s): I25.10 - Atherosclerotic heart disease of [place] coronary artery without angina pectoris Qualifiers: Coronary Disease-Associated Artery/Lesion type: [place] artery [place] vs. transplanted heart: [place] heart Associated angina: without angina Qualified Code(s): I25.10 - Atherosclerotic heart disease of [place] coronary artery without angina pectoris Plan: Control the cholesterol, weight, blood pressure and continue with aspirin (7) Hyperlipidemia: Code(s): E78.5 - Hyperlipidemia, unspecified Qualifiers: Hyperlipidemia type: pure hypercholesterolemia Qualified Code(s): E78.00 - Pure hypercholesterolemia, unspecified Plan: Avoid fried foods, chicken skin, eggs, butter margarine, pastries and meat. Be it pork or beef they have a lot of cholesterol LDL goal less than 70 and triglyceride of less than 150 patient is on atorvastatin 20 mg once a day Orders: Orders Comprehensive Met. Panel 6 Months R7 - Other specified abnormal findings of blood chemistry Free T4 (Free Thyroxine) 6 Months R7 - Other specified abnormal findings of blood chemistry Thyroid Stimulating Hormone 6 Months R7 - Other specified abnormal findings of blood chemistry Coding Level of Care Code Est Pt Prev Care >65y(58267) Diagnoses Annual physical exam Z00.00 Barretts esophagus K22.70 Impaired glucose tolerance R73.02 Blood pressure elevated without history of HTN R03.0 Benign prostatic hyperplasia with lower urinary tract symptoms N40.1; R35.0 Lower urinary tract symptom detail: urinary frequency CAD (coronary artery disease) I25.10 Coronary Disease-Associated Artery/Lesion type: [place] artery [place] vs. transplanted heart: [place] heart Associated angina: without angina Hyperlipidemia E78.00 Hyperlipidemia type: pure hypercholesterolemia
== END 2023-04-15 12:03 | disposition home or self-care (01) ==
PROVIDERS: PCP Internal Medicine; Visit Provider Internal Medicine
DX: Z00.00 Encounter for general adult medical examination without abnormal findings (principal); K22.70 Barrett's esophagus without dysplasia; R73.02 Impaired glucose tolerance (oral); R03.0 Elevated blood-pressure reading, without diagnosis of hypertension; N40.1 Benign prostatic hyperplasia with lower urinary tract symptoms; R35.0 Frequency of micturition; I25.10 Atherosclerotic heart disease of native coronary artery without angina pectoris; E78.00 Pure hypercholesterolemia, unspecified
CPT/HCPCS: 99397

== ENCOUNTER 2023-08-03 11:09 | Outpatient (REF) | payer OTHER, SELFPAY ==
[2023-08-03 12:14] LABS: Blood Urea Nitrogen 15 mg/dL (9-16); Estimated Glomerular Filt Rate > 60
== END 2023-08-03 11:10 | disposition home or self-care (01) ==
LOC: HO.LAB 11:09
PROVIDERS: PCP Internal Medicine; Visit Provider Internal Medicine
DX: Z86.018 Personal history of other benign neoplasm (principal)
CPT/HCPCS: 36415; 82565; 84520

== ENCOUNTER 2023-08-04 11:16 | Outpatient (REF) | payer OTHER, SELFPAY ==
--- NOTE | ~2023-08-04 | MR_ITS ---
EXAMINATION: MR BRAIN WITHOUT AND WITH CONTRAST CLINICAL INFORMATION: Personal history of benign neoplasm. COMPARISON: Brain MRI 07/19/2022. TECHNIQUE: Multiplanar, multisequence imaging of the brain was performed before and after the intravenous administration of 7.5 mL of Gadavist. FINDINGS: There is redemonstration of an avidly enhancing extra-axial mass arising from the posterior aspect of the left petrous ridge, measuring 1.8 cm (craniocaudal dimension), unchanged compared with 07/19/2022. There is minimal mass effect on the adjacent cerebellum but no parenchymal edema is seen. There is no acute or chronic infarction, hemorrhage, or extra-axial fluid collection. The ventricles, sulci, and basilar cisterns are normal in size and configuration. Mild nonspecific foci of T2/FLAIR hyperintensity are seen within the cerebral white matter. The flow voids of the major intracranial arteries appear intact. The bones and extracranial soft tissues are within normal limits. Chronic inflammatory changes are seen within the left sphenoid sinus where there is circumferential mucosal thickening and internal aerated secretions. MR/MR head/brain wo/w con IMPRESSION: Stable exam compared with 07/19/2022. Stable appearance of the 1.8 cm meningioma arising from the posterior aspect of the left petrous ridge. Stable minimal mass effect. No vasogenic edema. No new or acute findings.
[2023-08-04] MEDS: gadobutroL 7.5 ML VIAL IVPUSH (12:12)
== END 2023-08-04 11:17 | disposition home or self-care (01) ==
LOC: HO.MRI 11:16
PROVIDERS: PCP Internal Medicine; Visit Provider Internal Medicine
DX: Z86.018 Personal history of other benign neoplasm (principal)
CPT/HCPCS: 70553; A9585

== ENCOUNTER 2023-09-29 10:33 | Outpatient (REF) | payer OTHER, SELFPAY ==
[2023-09-29 12:36] LABS: Alanine Aminotransferase 15 U/L (0-40); Albumin Level 3.8 g/dL (3.5-5.0); Alkaline Phosphatase 94 U/L (39-117); Anion Gap 10 (12-20); Aspartate Amino Transferase 17 U/L (5-37); Bilirubin Total 0.5 mg/dL (0.0-1.0); Blood Urea Nitrogen 16 mg/dL (9-16); Calcium 9.7 mg/dL (8.4-10.2); Carbon Dioxide 30 mmol/L (22-29); Chloride 106 mmol/L (96-108); Estimated Glomerular Filt Rate > 60; Glucose Random 105 mg/dL (60-115); Potassium 4.5 mmol/L (3.3-5.1); Sodium 141 mmol/L (135-145); Total Protein 6.4 g/dL (6.5-8.0)
[2023-09-29 12:43] LABS: Free T4 (Free Thyroxine) 1.08 ng/dL (0.71-1.85)
== END 2023-09-29 10:34 | disposition home or self-care (01) ==
LOC: HO.LAB 10:33
PROVIDERS: PCP Internal Medicine; Visit Provider Internal Medicine
DX: R79.89 Other specified abnormal findings of blood chemistry (principal)
CPT/HCPCS: 36415; 80053; 84439; 84443

== ENCOUNTER 2023-12-27 13:16 | Outpatient (AMB) | payer MEDICARE, SELFPAY ==
--- NOTE | 2023-12-27 13:23 | A.OFFVIS_ITS ---
Intake Intake Visit Reasons: 1Y PVR(Portal Confirmed) Intake Note: Patient is Present for Follow Up Urology Medication: Tamsulosin Antibiotic Allergies:None Blood Thinners: Aspirin Confirmed Pharmacy: [facility] PVR: 0 Allergies No Known Allergies Allergy (Verified 12/27/23 13:26) HPI HPI Comments History of Present Illness Details Seb VALIENTE is a very pleasant male. They are a patient of Dr Redmond. They are seen in the office today for the following urologic conditions. - lower urinary tract symptoms Prior prostate procedure 2009 Stable with Flomax 1 tab at night Has urge particularly when goes out in the cold Normal CHRIS Follow in 12 months Will try coming off alpha-melissa Lower Urinary Tract Symptoms: Current visit is for further evaluation of, lower urinary tract symptoms, predominate obstructive symptoms - worse in fall with warm/cold temp change Current treatment includes medication - flomax. Prior treatments include 2009 , procedure, laser procedure Prostate Symptom Score 12/18 , Mild (0-8), Bother 1 12/19 , Mild (0-8), Bother 1 PSA - 04/24 0.16 further followup not indicated Treatment plan continue with current medications PFSH Medical History Hx of diplopia History of meningioma Fracture of right tibia and fibula DVT (deep venous thrombosis) Rosacea Psoriasis Allergic rhinitis Fatty liver Pulmonary nodule Vitamin D deficiency Peyronie's disease Feeling of incomplete bladder emptying Benign prostatic hyperplasia with lower urinary tract symptoms CAD (coronary artery disease) Hyperlipidemia Surgical History Hx of colonoscopy History of tonsillectomy History of prostate surgery S/P Mohs surgery for basal cell carcinoma Family History Father CVD (cardiovascular disease) Social History Housing: House Alcohol intake: current Alcohol intake frequency: a few times a month Patient Tobacco Use Status: Never used Tobacco e-Cigarette/Vaping Use: Never Used Second Hand Smoke Exposure: No Current occupational status: retired Cognitive needs: No Hearing needs: No Vision needs: Yes Review of Systems Const Denies chills and Denies fever(s) Card Reports no additional complaints and Denies syncope Resp Denies cough GI Denies abdominal pain and Denies heartburn Reports as per HPI and Denies change in libido Neuro Denies syncope Psych Denies change in libido Endo Denies change in libido Physical Exam Const General: cooperative, healthy appearing, comfortable and no acute distress Orientation/consciousness: patient oriented x3 HEENT Face and sinus: Yes normal facial exam Mouth: moist mucous membranes Neck Neck: Yes normal visual inspection, Yes full ROM and Yes trachea midline Chest Chest palpation & inspection: normal inspection of the chest Resp Effort & Inspection: normal respiratory effort, able to speak in complete sentences and no respiratory distress GI Inspection: Yes normal to inspection Back/Spine/Pelvis Cervical Spine: normal cervical lordosis Thoracic/Lumbar Spine: thoracic and lumbar spine normal to inspection Skin General skin exam: no rashes or lesions noted Neuro General: patient oriented x3, gait normal, tone normal and moves all extremities Extrem General: Yes normal to inspection and Yes capillary refill normal Office Procedures Post Void Residual Post Residual Void Post Void Residual (PVR): 0 [id number] Void Residual by ultrasound Assessment & Plan Assessment & Plan (1) Benign prostatic hyperplasia with lower urinary tract symptoms: Comment: Dr. Lee Code(s): N40.1 - Benign prostatic hyperplasia with lower urinary tract symptoms Qualifiers: Lower urinary tract symptom detail: urinary frequency Qualified Code(s): N40.1 - Benign prostatic hyperplasia with lower urinary tract symptoms; R35.0 - Frequency of micturition Plan Twelve month follow-up PVR Orders: Orders AMB Post Void Residual by ultrasound Today N40.1 - Benign prostatic hyperplasia with lower urinary tract symptoms, R35.0 - Frequency of micturition Patient Instructions: Imaging studies, laboratory and physical exam results were discussed and reviewed in detail. No major barriers to patient understanding were identified. An opportunity to ask questions regarding the treatment plan was provided. All questions were answered. The patient expressed understanding and agreement with the above treatment plan. The patient is aware they should contact our office by phone for worsening of their current condition or the appearance of new urologic symptoms. Compliance is encouraged with any medications and followup testing that is ordered. It is a privilege to participate in the urologic care of your patient. If you have any questions or concerns regarding treatment for the above conditions, or other urologic issues, please do not hesitate to contact me. The office telephone contact is [phone]. This note is constructed using voice recognition software. While every effort has been made to ensure accuracy streetcar repairer errors may have been included. Yours sincerely, Dr Armando Lee MD, [facility] - Urology Providers of Expert, Compassionate Care for the Genitourinary System Coding Level of Care Code Est Pt Level 4 (93493) Diagnoses Benign prostatic hyperplasia with urinary frequency N40.1; R35.0 Lower urinary tract symptom detail: urinary frequency CPT Codes Post Residual Void - PVR CPT Code: 60677-[place]reb Void Residual by ultrasound ([id number])
== END 2023-12-27 13:52 | disposition home or self-care (01) ==
PROVIDERS: Visit Provider Urology
DX: N40.1 Benign prostatic hyperplasia with lower urinary tract symptoms (principal); R35.0 Frequency of micturition
CPT/HCPCS: 99213

== ENCOUNTER → 2023-12-27 13:16 | Outpatient (BNVA) | payer MEDICARE, SELFPAY | PROVIDERS: Visit Provider Urology | DX: N40.1 Benign prostatic hyperplasia with lower urinary tract symptoms (principal); R35.0 Frequency of micturition | CPT/HCPCS: 51798; 99212 ==

== ENCOUNTER 2024-04-11 08:04 | Outpatient (REF) | payer MEDICARE, SELFPAY ==
[2024-04-11 08:17] LABS: MANUAL DIFF FLAG NO
[2024-04-11 09:05] LABS: Basophils Percent Auto 0.5 % (0-2); Eosinophils Absolute Auto 0.1 X10*3/uL (0.0-0.4); Eosinophils Percent Auto 1.7 % (0-4); Hematocrit 47.5 % (42.0-52.0); Hemoglobin 16.2 g/dl (14.0-18.0); Imm Gran Abs Auto 0.01 X10*3/uL (0.00-0.03); Imm Gran Pct Auto 0.2 % (0.0-0.4); Lymphocytes Absolute Auto 1.9 X10*3/uL (1.2-4.9); Lymphocytes Percent Auto 32.9 % (20-40); Mean Corpuscular HGB Conc 34.1 g/dl (31.0-36.0); Mean Corpuscular Volume 93.7 fL (80.0-98.0); Mean Platelet Volume 10.9 fL (9.4-12.4); Monocytes Absolute Auto 0.6 X10*3/uL (0.1-1.2); Neutrophils Absolute Auto 3.1 x10*3/uL (2.0-8.3); Neutrophils Percent Auto 54.7 % (45-73); Platelet Count 156 X10*3/uL (160-400); Red Blood Count 5.07 X10*6/uL (4.60-5.80); Red Cell Distribution Width 12.4 % (11.0-16.0); White Blood Count 5.7 X10*3/uL (4.8-10.8)
[2024-04-11 09:24] LABS: Estimated Average Glucose 105 mg/dL; Hemoglobin A1C 149.0148 umol/L; Hemoglobin A1c % 5.3 % (<6.0)
[2024-04-11 10:36] LABS: Alanine Aminotransferase 15 U/L (0-40); Albumin Level 4.1 g/dL (3.5-5.0); Alkaline Phosphatase 91 U/L (39-117); Anion Gap 9 (12-20); Aspartate Amino Transferase 16 U/L (5-37); Bilirubin Total 0.8 mg/dL (0.0-1.0); Blood Urea Nitrogen 15 mg/dL (9-16); Calcium 9.7 mg/dL (8.4-10.2); Carbon Dioxide 27 mmol/L (22-29); Chloride 108 mmol/L (96-108); Cholesterol 123 mg/dL (<200); Estimated Glomerular Filt Rate > 60; Glucose Random 98 mg/dL (60-115); HDL Cholesterol 51 mg/dL (>40); LDL Cholesterol Calculated 57 mg/dL (<100); Potassium 4.1 mmol/L (3.3-5.1); Sodium 140 mmol/L (135-145); Total Protein 6.5 g/dL (6.5-8.0); Triglycerides 76 mg/dL (<150)
[2024-04-11 10:58] LABS: Free T4 (Free Thyroxine) 0.94 ng/dL (0.71-1.85); Thyroid Stimulating Hormone 4.16 uIU/mL (0.32-4.0)
[2024-04-11 11:05] LABS: Folate 11.4 ng/mL (> or = 4.0); Prostate Specific Antigen Scr 0.22 ng/mL (<0.05-4.0); Vitamin B12 744 pg/mL (200-900)
== END 2024-04-11 08:05 | disposition home or self-care (01) ==
LOC: HO.LAB 08:04
PROVIDERS: PCP Internal Medicine; Visit Provider Internal Medicine
DX: E78.00 Pure hypercholesterolemia, unspecified (principal); R73.02 Impaired glucose tolerance (oral); Z12.5 Encounter for screening for malignant neoplasm of prostate
CPT/HCPCS: 36415; 80053; 80061; 82607; 82746; 83036; 84153; 84439; 84443; 85025

== ENCOUNTER 2024-04-19 11:09 | Outpatient (AMB) | payer MEDICARE, SELFPAY ==
[2024-04-19 11:24] VITALS: BP 154/92; PULSE 75; O2SAT 98; BMI 25.2
--- NOTE | 2024-04-19 11:24 | MHC.PC.OV ---
Vital Signs 04/19/24 11:24 Height 5 ft 8 in Weight 166 lb BMI 25.2 BP 154/92 H Blood Pressure Location Lt brachial Position Sitting Pulse 75 Pulse Source Pulse Oximeter Pulse Oximetry (%) 98 Oxygen Delivery Method Room Air Intake Visit Reasons: pe Allergies No Known Allergies Allergy (Verified 04/19/24 11:24) Medication List - Last Reconciled 04/19/24 by Radha Redmond MD ascorbate calcium (vitamin C) 500 mg PO DAILY aspirin (Adult Aspirin Regimen) 81 mg PO .twice a week atorvastatin 20 mg PO DAILY 90 days cholecalciferol (vitamin D3) 25 mcg PO DAILY coenzyme Q10 (Co Q-10) 50 mg PO DAILY cyanocobalamin (vitamin B-12) 1,000 mcg PO DAILY doxycycline hyclate 20 mg PO BID vitamin A 2,400 mcg PO DAILY vitamin E 200 units PO DAILY vitamin K2 100 mcg PO DAILY Tobacco use date assessed: 04/19/24 Fall risk assessment: No Falls in past year Last assessed Fall Risk: 04/19/24 Dental Screening Dental Screen Date: 04/19/24 Did you have a dental visit in the last 12 months?: Yes Did you have a dental problem in the last 6 months where you did not have access to dental care?: No Was dental information given to patient?: Patient has dentist HPI pe HPI Details 69-year-old male with Barretts esophagus impaired glucose tolerance BPH coronary artery disease hypercholesterolemia last seen for physical exam in April 2023. Noted to have an elevated blood pressure. Patient is here for physical exam. Colon test up-to-date January 2023 notes reviewed follows up with urology yearly prostate procedure in 2009 stable on Flomax normal digital rectal exam PVR 0. Patient had an MRI of the brain in August 2023 has a 1.8 cm meningioma in the posterior aspect of the left petrous ridge. Stable patient also has seen Ophthalmology [facility] Medical History (Updated 04/19/24 @ 12:17 by Radha Redmond MD) Hx of diplopia History of meningioma Fracture of right tibia and fibula DVT (deep venous thrombosis) Rosacea Psoriasis Allergic rhinitis Fatty liver Pulmonary nodule Vitamin D deficiency Peyronie's disease Feeling of incomplete bladder emptying Benign prostatic hyperplasia with lower urinary tract symptoms CAD (coronary artery disease) Hyperlipidemia Surgical History Hx of colonoscopy History of tonsillectomy History of prostate surgery S/P Mohs surgery for basal cell carcinoma Family History Father CVD (cardiovascular disease) Social History (Updated 04/19/24 @ 12:14 by Radha Remdond MD) Housing: House Alcohol intake: current Alcohol intake frequency: a few times a month Comment: once a week 1 beer Patient Tobacco Use Status: Never used Tobacco e-Cigarette/Vaping Use: Never Used Second Hand Smoke Exposure: No Current occupational status: retired Cognitive needs: No Hearing needs: No Vision needs: Yes Questionnaire PHQ-9 Over the last 2 weeks, how often have you been bothered by any of the following problems? 1. Little interest or pleasure in doing things: not at all 2. Feeling down, depressed, or hopeless: not at all 3. Trouble falling or staying asleep, or sleeping too much: not at all 4. Feeling tired or having little energy: not at all 5. Poor appetite or overeating: not at all 6. Feeling bad about yourself - or that you are a failure or have let yourself or your family down: not at all 7. Trouble concentrating on things, such as reading the newspaper or watching television: not at all 8. Moving or speaking so slowly that other people could have noticed. Or the opposite - being so fidgety or restless that you have been moving around a lot more than usual: not at all 9. Thoughts that you would be better off or of hurting yourself in some way: not at all Total score: 0 Depression Screening Interpretation: Negative Depression Screening Done: Yes Source: Developed by Drs. Seb Rausch, Bess Milton, Franklyn Lambert and colleagues, with an educational joni from [employer] 2000. Thrive Questionnaire Date Thrive assessed: 04/19/24 I am a: Patient What is your living situation today?: I have a steady place to live Within the past 12 months, did the food you bought not last and you didn't have the money to get more?: Never true Within the past 12 months, did you worry whether your food would run out before you got money to buy more?: Never true Do you have trouble paying for medicines?: No Do you have trouble getting transportation to medical appointments?: No Do you have trouble paying your heating and electricity bill?: No Do you have trouble taking care of your child, family member or friend?: No Do you have trouble with day-to-day activities such as bathing, preparing meals, shopping, managing finances, etc.?: No Are you currently unemployed and looking for a job?: No Are you interested in more education?: No Currently or been in a relationship where the following occur: No concerns reported THRIVE Score: 0 AUDIT C Alcohol Use Questionnaire (AUDIT-C) 1. How often do you have a drink containing alcohol?: 2-4 times a month 2. How many drinks containing alcohol do you have on a typical day when you are drinking?: 1 or 2 3. How often do you have six or more drinks on one occasion?: Never Total Score: 2 LEONOR-7 AMB Questionnaire LEONOR-7 Date LEONOR - 7 assessed: 04/19/24 Feeling nervous, anxious, or on edge: 0 = Not at all Not being able to stop or control worryin = Not at all Worrying too much about different things: 0 = Not at all Trouble relaxin = Not at all Being so restless that it is hard to sit still: 0 = Not at all Becoming easily annoyed or irritable: 0 = Not at all Feeling afraid as if something awful might happen: 0 = Not at all Total LEONOR-7 score (0-4 normal; 5-9 mild; 10-14 moderate; 15-21 severe): 0 Source: Developed by Drs. Seb Rausch, Bess Milton, Franklyn Lambert and colleagues, with an educational joni from [employer] 2000. Review of Systems Const Denies poor appetite and Denies weakness Eyes Denies no additional complaints ENT Reports Normal hearing present, Denies dizziness, Denies nasal congestion, Denies tinnitus and Denies sore throat Card Denies chest pain, Denies syncope, Denies rapid heart rate and Denies dyspnea Resp Denies cough and Denies dyspnea GI Denies change in stool character, Reports constipation, Denies diarrhea, Denies nausea and Denies vomiting Denies dysuria and Denies urinary frequency Neuro Reports Normal hearing present, Denies confusion, Denies dizziness, Denies syncope and Denies weakness Psych Denies confusion Physical exam (Primary Care) Vital Signs: Last Vital Signs Pulse 75 04/19/24 11:24 BP 154/92 H 04/19/24 11:24 Pulse Ox 98 04/19/24 11:24 Oxygen Delivery Method Room Air 04/19/24 11:24 BMI result Body Mass Index 25.2 Tobacco/Smoking Status: Tobacco use Status Tobacco use date assessed 04/19/24 04/19/24 11:25 Patient Tobacco Use Status Never used Tobacco 04/19/24 11:25 e-Cigarette/Vaping Use Never Used 04/19/24 11:25 PHQ-9: PHQ-9 Score PHQ-9: Total score 0 04/19/24 11:34 Depression Screening Interpretation: Negative Thrive Assessment: Date of Thrive Assessment Date Thrive assessed 04/19/24 04/19/24 11:25 Currently or been in a relationship where the following occur: No concerns reported Const General: No confusion Orientation/consciousness: No confusion HENMT Head: Yes normocephalic Ears: external ears normal and TM's normal bilaterally Face and sinus: Yes normal facial exam Mouth: moist mucous membranes Throat: Yes tonsils normal Eyes Conjunctivae: conjunctivae normal Pupils: Equal, round and reactive pupils present and Pupil accommodation reflex normal Direct Ophthalmoscopy: normal light reflex Neck Neck: No lymphadenopathy Thyroid: Thyroid normal Chest Chest palpation & inspection: normal inspection of the chest Resp Effort & Inspection: normal respiratory effort and no audible wheezes Auscultation: clear to auscultation bilaterally, no crackles, no wheezes and lung sounds not diminished Cardio Rate: regular rate Rhythm: regular rhythm Peripheral pulses: radial pulses present and dorsalis pedis present GI Palpation (GI): no masses Auscultation: normal bowel sounds and normoactive bowel sounds Rectal Exam - Male: Yes deferred Skin General skin exam: no rashes or lesions noted Rashes: no rashes Neuro General: No confusion Cranial nerves: Yes Equal, round and reactive pupils present and Yes Normal hearing present Cognition (Neuro): normal cognition Gait exam (Neuro): Normal gait present Motor exam (neuro): 5/5 motor strength present throughout Deep tendon reflexes (DTR's): Right brachioradialis reflex intensity grade: 2+, Left brachioradialis reflex intensity grade: 2+, Right patellar reflex intensity grade: 2+ and Left patellar reflex intensity grade: 2+ Extrem General: No edema Assessment and Plan Assessment & Plan (1) Annual physical exam: Code(s): Z00.00 - Encounter for general adult medical examination without abnormal findings Plan: Patient is advised to eat healthy, keep well hydrated, keep active and have adequate sleep. (2) History of meningioma: Comment: 08/2023 Code(s): Z86.018 - Personal history of other benign neoplasm Plan: MRI done continue to follow-up (3) Barretts esophagus: Code(s): K22.70 - Sagastume's esophagus without dysplasia Plan: Avoid the foods that causes that usually spicy foods, tomato products, juices, coffee, soda and foods that your sensitive to. After eating do not lie down, allow 3-4 hours before in lie down. And keep the head of bed above 30 degrees to avoid the acid from going up. (4) Impaired glucose tolerance: Code(s): R73.02 - Impaired glucose tolerance (oral) Plan: Decrease the amount of carbohydrate intake, pasta, bread, rice and potatoes are all sugar and that is aside from all the sweet stuff, remember that fruits are good but they are Sweet also. (5) TSH elevation: Code(s): R79.89 - Other specified abnormal findings of blood chemistry Plan: Mild elevation and will continue to monitor (6) Benign prostatic hyperplasia with lower urinary tract symptoms: Comment: Dr. Lee Code(s): N40.1 - Benign prostatic hyperplasia with lower urinary tract symptoms Qualifiers: Lower urinary tract symptom detail: urinary frequency Qualified Code(s): N40.1 - Benign prostatic hyperplasia with lower urinary tract symptoms; R35.0 - Frequency of micturition Plan: Patient follows up with urology continuing with tamsulosin (7) CAD (coronary artery disease): Code(s): I25.10 - Atherosclerotic heart disease of [place] coronary artery without angina pectoris Qualifiers: Coronary Disease-Associated Artery/Lesion type: [place] artery [place] vs. transplanted heart: [place] heart Associated angina: without angina Qualified Code(s): I25.10 - Atherosclerotic heart disease of [place] coronary artery without angina pectoris Plan: Control the cholesterol, weight, blood pressure on aspirin 81 mg once a day (8) Hyperlipidemia: Code(s): E78.5 - Hyperlipidemia, unspecified Qualifiers: Hyperlipidemia type: pure hypercholesterolemia Qualified Code(s): E78.00 - Pure hypercholesterolemia, unspecified Plan: Avoid fried foods, chicken skin, eggs, butter margarine, pastries and meat. Be it pork or beef they have a lot of cholesterol atorvastatin 20 mg once a day LDL goal of less than 70 and triglyceride of less than 150 (9) Rosacea: Code(s): L71.9 - Rosacea, unspecified (10) Hearing deficit: Code(s): H91.90 - Unspecified hearing loss, unspecified ear Plan: stable (11) Hypertension: Code(s): I10 - Essential (primary) hypertension (12) Inguinal hernia unilateral, non-recurrent: Comment: Right Code(s): K40.90 - Unilateral inguinal hernia, without obstruction or gangrene, not specified as recurrent Plan: avoid heavy lifting- stable Coding Level of Care Code Est Pt Prev Care >65y(37659) Diagnoses Annual physical exam Z00.00 History of meningioma Z86.018 Barretts esophagus K22.70 Impaired glucose tolerance R73.02 TSH elevation R79.89 Benign prostatic hyperplasia with urinary frequency N40.1; R35.0 Lower urinary tract symptom detail: urinary frequency Coronary artery disease involving [place] coronary artery of [place] heart without angina pectoris I25.10 Coronary Disease-Associated Artery/Lesion type: [place] artery [place] vs. transplanted heart: [place] heart Associated angina: without angina Pure hypercholesterolemia E78.00 Hyperlipidemia type: pure hypercholesterolemia Rosacea L71.9 Hearing deficit H91.90 Hypertension I10 Inguinal hernia unilateral, non-recurrent K40.90
== END 2024-04-19 12:30 | disposition home or self-care (01) ==
PROVIDERS: PCP Internal Medicine; Visit Provider Internal Medicine
DX: R73.02 Impaired glucose tolerance (oral) (principal); Z86.018 Personal history of other benign neoplasm; K22.70 Barrett's esophagus without dysplasia; R79.89 Other specified abnormal findings of blood chemistry; N40.1 Benign prostatic hyperplasia with lower urinary tract symptoms; R35.0 Frequency of micturition; I25.10 Atherosclerotic heart disease of native coronary artery without angina pectoris; E78.00 Pure hypercholesterolemia, unspecified; L71.9 Rosacea, unspecified; I10 Essential (primary) hypertension
CPT/HCPCS: 99214

== ENCOUNTER 2024-07-05 11:19 | Outpatient (REF) | payer MEDICARE, SELFPAY ==
--- NOTE | ~2024-07-05 | MR_ITS ---
EXAMINATION: MR BRAIN WITHOUT AND WITH CONTRAST CLINICAL INFORMATION: Benign neoplasm of meningitis COMPARISON: MRI brain on 08/04/2023 TECHNIQUE: Multiplanar, multisequence MRI of the brain was obtained before and after the intravenous administration of 7.5 mL Gadavist. FINDINGS: Redemonstration of 1.7 cm homogeneously enhancing mass along the posterior aspect of the left petrous ridge, not significantly changed in size when compared to prior. Minimal mass effect on the adjacent cerebellum without intraparenchymal edema. Otherwise, no suspicious intracranial enhancement. No acute intracranial hemorrhage or infarct. Scattered and confluent periventricular and deep white matter T2/FLAIR hyperintensities, nonspecific however commonly seen with small vessel ischemic disease. Diffuse prominence of the sulci with associated ex vacuo dilation of the ventricles compatible with global cerebral atrophy. No midline shift or hydrocephalus. No acute extra-axial fluid collections. The osseous structures are unremarkable. The pituitary gland, pineal gland and remaining midline structures are unremarkable. No orbital pathology. The paranasal sinuses and mastoid air cells are clear. MR/MR head/brain wo/w con IMPRESSION: 1. Stable 1.7 cm left petrous ridge meningioma. 2. No acute intracranial abnormalities. Electronically signed by: Isaac Rogers MD 07/17/2024 02:15 PM EDT
[2024-07-05] MEDS: gadobutroL 7.5 ML VIAL IVPUSH (12:11)
== END 2024-07-05 11:20 | disposition home or self-care (01) ==
LOC: HO.MRI 11:19
PROVIDERS: PCP Internal Medicine; Visit Provider Internal Medicine
DX: D32.9 Benign neoplasm of meninges, unspecified (principal)
CPT/HCPCS: 70553; A9585

== ENCOUNTER 2024-07-19 09:16 | Outpatient (AMB) | payer MEDICARE, SELFPAY ==
[2024-07-19 09:19] VITALS: BP 152/80; PULSE 51; O2SAT 99; BMI 25.5
--- NOTE | 2024-07-19 09:19 | A.OFFPC_ITS ---
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: No Allergies No Known Allergies Allergy (Verified 07/19/24 09:20) Medication List - Last Reconciled 07/19/24 by Cailin Luna PA-C ascorbate calcium (vitamin C) 500 mg PO DAILY aspirin (Adult Aspirin Regimen) 81 mg PO .twice a week atorvastatin 20 mg PO DAILY 90 days cholecalciferol (vitamin D3) 25 mcg PO DAILY coenzyme Q10 (Co Q-10) 50 mg PO DAILY cyanocobalamin (vitamin B-12) 1,000 mcg PO DAILY doxycycline hyclate 20 mg PO BID metoprolol succinate ER 25 mg PO DAILY vitamin A 2,400 mcg PO DAILY vitamin E 200 units PO DAILY vitamin K2 100 mcg PO DAILY Tobacco use date assessed: 07/19/24 Fall risk assessment: No Falls in past year Last assessed Fall Risk: 07/19/24 Dental Screening Dental Screen Date: 04/19/24 HPI 3 Month F/U HPI Details 69-year-old male with past medical histo ry of Barretts esophagus, impaired glucose tolerance, BPH, coronary artery disease, and hypercholesterolemia last seen by Dr. Redmond April 2024 coming in for follow up.? Blood pressure was elevated at last visit advised to follow up in 3 months.? Patient had MRI completed 07/17/2024 stable 1.7 cm left petrous ridge meningioma. Patient has been on metoprolol for the last month. Blood pressures at home have been within normal limits. He has no acute concerns today. [facility] Medical History (Updated 07/17/24 @ 18:05 by Radha Redmond MD) Hx of diplopia History of meningioma Fracture of right tibia and fibula DVT (deep venous thrombosis) Rosacea Psoriasis Allergic rhinitis Fatty liver Pulmonary nodule Vitamin D deficiency Peyronie's disease Feeling of incomplete bladder emptying Benign prostatic hyperplasia with lower urinary tract symptoms CAD (coronary artery disease) Hyperlipidemia Surgical History Hx of colonoscopy History of tonsillectomy History of prostate surgery S/P Mohs surgery for basal cell carcinoma Family History Father CVD (cardiovascular disease) Social History (Updated 04/19/24 @ 12:14 by Radha Redmond MD) Housing: House Alcohol intake: current Alcohol intake frequency: a few times a month Comment: once a week 1 beer Patient Tobacco Use Status: Never used Tobacco e-Cigarette/Vaping Use: Never Used Second Hand Smoke Exposure: No Current occupational status: retired Cognitive needs: No Hearing needs: No Vision needs: Yes Questionnaire Thrive Questionnaire Date Thrive assessed: 04/19/24 AUDIT C Alcohol Use Questionnaire (AUDIT-C) 1. How often do you have a drink containing alcohol?: 2-4 times a month 2. How many drinks containing alcohol do you have on a typical day when you are drinking?: 1 or 2 3. How often do you have six or more drinks on one occasion?: Never Total Score: 2 LEONOR-7 AMB Questionnaire LEONOR-7 Date LEONOR - 7 assessed: 04/19/24 Source: Developed by Drs. Seb Rausch, Bess Milton, Franklyn Lambert and colleagues, with an educational joni from [employer]. Review of Systems Const Denies body aches, Denies chills and Denies fever(s) Eyes Reports no additional complaints ENT Reports no additional complaints and Denies dizziness Card Denies chest pain, Denies syncope, Denies leg edema, Denies lightheadedness and Denies dyspnea Resp Denies dyspnea Musc Denies muscle weakness Neuro Denies dizziness and Denies syncope Physical exam (Primary Care) Vital Signs: Oxygen Delivery Method Room Air 07/19/24 09:19 BMI result Body Mass Index 25.5 Tobacco/Smoking Status: Tobacco use Status Tobacco use date assessed 07/19/24 07/19/24 09:20 Patient Tobacco Use Status Never used Tobacco 07/19/24 09:20 e-Cigarette/Vaping Use Never Used 07/19/24 09:20 Thrive Assessment: Date of Thrive Assessment Date Thrive assessed 04/19/24 07/19/24 09:20 Const General: cooperative, healthy appearing, comfortable and no acute distress Orientation/consciousness: patient oriented x3 HENMT Head: Yes normocephalic Ears: hearing grossly normal bilaterally General nose exam: Normal external nose present Eyes General: appearance normal, both eyes and all related structures Conjunctivae: conjunctivae normal Neck Neck: Yes full ROM and Yes no lymphadenopathy Resp Effort & Inspection: normal respiratory effort Auscultation: clear to auscultation bilaterally, no crackles, no rales, no rhonchi and no wheezes Cardio Rate: regular rate Rhythm: regular rhythm Skin General skin exam: no rashes or lesions noted Neuro General: patient oriented x3 Gait exam (Neuro): Normal gait present Extrem General: Yes normal to inspection, Yes full ROM and No edema Psych Affect: normal affect Attitude: cooperative Insight: Good insight present (Psych) Judgement: Good judgement present (Psych) Coding Level of Care Code Est Pt Level 3 (50246) Diagnoses Hypertension I10 Impaired glucose tolerance R73.02 TSH elevation R79.89 Pure hypercholesterolemia E78.00 Hyperlipidemia type: pure hypercholesterolemia Assessment & Plan Assessment & Plan (1) Hypertension: Code(s): I10 - Essential (primary) hypertension Category: Medical Plan: Continue on current blood pressure medication. Avoid salt intake and encourage healthy diet and regular exercise. Has been on Metoptolol and doing well with this medication without any adverse effects. Blood pressures at home have been 110-120 systolic over 60-70 diastolic without any hypotension or hypertension. Continue to monitor blood pressures and follow up at yearly exam or sooner if blood pressures are regular. (2) Impaired glucose tolerance: Code(s): R73.02 - Impaired glucose tolerance (oral) Category: Medical Plan: Decrease the amount of carbohydrates such as pasta, bread, rice, and potatoes and limit the amount of sweets. Although fruits are generally healthy they should be eaten in moderation as they are still high in sugar. Hemoglobin A1c goal of less than 7%. (3) TSH elevation: Code(s): R79.89 - Other specified abnormal findings of blood chemistry Category: Medical Plan: Continue to monitor with lab work. (4) Hyperlipidemia: Code(s): E78.5 - Hyperlipidemia, unspecified Category: Medical Qualifiers: Hyperlipidemia type: pure hypercholesterolemia Qualified Code(s): E78.00 - Pure hypercholesterolemia, unspecified Plan: Avoid foods that are high in cholesterol such as red meat, fried foods, eggs and baked goods. Triglyceride goal of less than 150 and LDL goal of less than 130. Plan This note was constructed using voice recognition software. While every effort has been made to ensure accuracy and track laminating machine tender, still areas may have been included sometimes these areas may affect the content or meeting of the given symptoms. Total time spent caring for the patient today was 30 minutes. This includes time spent before the visit reviewing the chart, time spent during the visit, and time spent after the visit and documentation. Medications: Refilled metoprolol succinate ER 25 mg PO DAILY 30 tabs 3RF I10 - Essential (primary) hypertension metoprolol succinate ER 25 mg PO DAILY 90 tabs 3RF I10 - Essential (primary) hypertension
== END 2024-07-19 09:59 | disposition home or self-care (01) ==
PROVIDERS: PCP Internal Medicine
DX: I10 Essential (primary) hypertension (principal); R73.02 Impaired glucose tolerance (oral); R79.89 Other specified abnormal findings of blood chemistry; E78.00 Pure hypercholesterolemia, unspecified

== ENCOUNTER → 2024-07-19 09:16 | Outpatient (BNVA) | payer MEDICARE, SELFPAY | PROVIDERS: PCP Internal Medicine | DX: I10 Essential (primary) hypertension (principal); R73.02 Impaired glucose tolerance (oral); R79.89 Other specified abnormal findings of blood chemistry; E78.00 Pure hypercholesterolemia, unspecified | CPT/HCPCS: 99212 ==

== ENCOUNTER 2025-04-16 08:33 | Outpatient (REF) | payer MEDICARE, SELFPAY ==
--- OUTSIDE RECORDS SUMMARY | 2025-04-16 08:39 | XMS_ITS | Clinical Summary ---
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 Name Role Phone Unavailable Primary Care Provider Unavailabl e Social History Tobacco Use Types Packs/Day Years Used Date Smoking Tobacco: Never Assessed Sex and Gender Information Value Date Recorded Sex Assigned at Not on file Legal Sex Male 7:58 PM EST Gender Identity Not on file Sexual Orientation Not on file Plan of Treatment Health Maintenance Due Date Last Done Comments Hepatitis C Virus Screening 1955 DTaP/Tdap/Td Vaccines (1 - Tdap) 1972 Pneumococcal Vaccines 50+ (1 of 1 - PCV) 2003 Zoster (Shingles) Vaccine (1 of 2) 2003 COVID-19 Vaccine ( - 2023-2 5 season) 2024 RSV Vaccine 60 years and old er and Patients (1 - 1-dose 75+ series) 2028 Hepatitis B Vaccines Aged Out No long er eligible based on patient's age to complete this topic
--- OUTSIDE RECORDS SUMMARY | 2025-04-16 08:39 | XMS_ITS | Patient Health Record ---
Author Organization [facility] Address [address] [place] [id number] Care Team Providers Care Administrative Staff Supervisor Name Role Phone Radha Redmond MD Primary Care Provider Seb Whelan Unavailable [phone] Reason For Referral No Information Medications Medication SIG (Take, Route, Frequency, Duration) Notes Start Date End Date Status Aspirin 81 81 MG 1 tablet Orally twic e a week Active Atorvastatin Calcium 20 MG Oral for 90 Active Doxycycline 40 MG 1 capsule on an empt y stomach in the morning Orally Once a day Active Omeprazole 20 MG TAKE 1 CAPSULE BY MO UT 30 MINUTES BEFORE MORNING MEAL ONCE A DAY for 90 Active Vitamin D3 25 MCG (1000 UT) 1 tablet Ora lly Once a day for 30 day(s) Active Vitamin E 400 UNIT 1 tablet Orally Once a day for 30 day(s) Active Vitamin A 2400 MCG (8000 UT) as directed Orally Active K2 Active Immunizations Vaccine Route Administration Date Status Comme nts Influenza Unknown 06/03/2022 Administered Problems Problem Type SNOMED Code ICD Code Onset Dates Problem Status W/U Status Risk Notes Problem 810807536 Encounter for screening for malignant neoplasm of colon (Z12.11) Active confirmed Problem 782591009 History of adenomatous polyp of colon (Z86.010) Active confirmed Problem Stricture of esophagus (39125069) Esophageal obstruction (K22.2) Active confirmed Problem Diverticular disease of colon (122514930) Diverticulosis of large intestine without perforation or abscess without bleeding (K57.30) Active confirmed Problem Screening for malignant neoplasm of rectum (018800432) Encounter for screening for malignant neoplasm of rectum (Z12.12) Active confirmed Problem Gastroesophageal reflux disease (899446871) Gastroesophageal reflux disease (K21.9) Active confirmed Problem 08905591 Preprocedural examination (Z01.818) Active confirmed Problem Gastritis (8650202) Gastritis (K29.70) Active c onfirmed Problem 70713093 Esophageal dysphagia (R13.19) Active confirmed Plan Of Treatment Future Test Test Name Order Date COLONOSCOPY 08/18/2011 COLONOSCOPY 09/02/2016 UPPER GI ENDOSCOPY BALLOOON DILATION OF ESOPH 11/26/2022 COLONOSCOPY 11/26/2022 Insurance Providers Payer Name Payer Address Payer Phone Subscriber Number Group Number Insured Name Patient Relationship to Insured Coverage Start Date Coverage End Date [employer] [place] [address] [address] [place] [address] [id number] SEB VALIENTE Self - patient is the insured Medical (General) History Medical History History ICD Code Colonoscopy 09-29-2011 and --tubular adenomas, mild diverticulosis, small internal hemorrhoids Acne rosacea Denies [place],DM,CVA,Lung disease,renal dise ase BPH Negative followup screening colonoscopy in November of 2016 Meningioma of brain being fo llowed with periodic imaging studies. He has not required any surgery or other treatments, Hyperlipidemia Surgical History Surgery Date(Month/Year) Skin cancer on face, back legs--basal ce ll
[2025-04-16 08:46] LABS: MANUAL DIFF FLAG NO
[2025-04-16 09:13] LABS: Hematocrit 45.0 % (42.0-52.0); Hemoglobin 15.9 g/dl (14.0-18.0); Imm Gran Abs Auto 0.02 X10*3/uL (0.00-0.03); Imm Gran Pct Auto 0.4 % (0.0-0.4); Lymphocytes Absolute Auto 2.0 X10*3/uL (1.2-4.9); Mean Corpuscular HGB Conc 35.3 g/dl (31.0-36.0); Mean Corpuscular Hemoglobin 31.8 pg (27.0-33.0); Mean Corpuscular Volume 90.0 fL (80.0-98.0); NRBC Abs Auto 0.000 X10*3/uL (0.0-0.012); NRBC Pct Auto 0.0 /100WBC (0.0-0.2); Platelet Count 171 X10*3/uL (160-400); Red Blood Count 5.00 X10*6/uL (4.60-5.80); White Blood Count 5.7 X10*3/uL (4.8-10.8)
[2025-04-16 09:14] LABS: Hemoglobin A1C 150.4246 umol/L; Total Hemoglobin (HGBA1C) 4108.1265 umol/L
[2025-04-16 09:45] LABS: Alanine Aminotransferase 16 U/L (0-40); Albumin Level 4.1 g/dL (3.5-5.0); Alkaline Phosphatase 89 U/L (39-117); Anion Gap 9 (12-20); Aspartate Amino Transferase 22 U/L (5-37); Blood Urea Nitrogen 17 mg/dL (9-16); Calcium 9.3 mg/dL (8.4-10.2); Carbon Dioxide 27 mmol/L (22-29); Chloride 109 mmol/L (96-108); Cholesterol 129 mg/dL (<200); Estimated Glomerular Filt Rate > 60; HDL Cholesterol 49 mg/dL (>40); Magnesium 2.1 mg/dL (1.6-2.6); Potassium 4.6 mmol/L (3.3-5.1); Sodium 140 mmol/L (135-145); Total Protein 6.3 g/dL (6.5-8.0); Triglycerides 73 mg/dL (<150)
[2025-04-16 10:07] LABS: Free T4 (Free Thyroxine) 1.02 ng/dL (0.71-1.85); Thyroid Stimulating Hormone 4.66 uIU/mL (0.32-4.0)
[2025-04-16 10:11] LABS: Folate 13.0 ng/mL (> or = 4.0); Vitamin B12 699 pg/mL (200-900)
== END 2025-04-16 08:34 | disposition home or self-care (01) ==
LOC: HO.LAB 08:33
PROVIDERS: PCP Internal Medicine; Visit Provider Internal Medicine
DX: D32.9 Benign neoplasm of meninges, unspecified (principal); R73.02 Impaired glucose tolerance (oral); E78.00 Pure hypercholesterolemia, unspecified
CPT/HCPCS: 36415; 80053; 80061; 82607; 82746; 83036; 83735; 84153; 84439; 84443; 85025

== ENCOUNTER 2025-04-23 10:01 | Outpatient (AMB) | payer MEDICARE, SELFPAY ==
[2025-04-23 10:05] VITALS: BP 142/90; PULSE 55; RESP 16; TEMP 36.1; O2SAT 98; BMI 26.0
--- NOTE | 2025-04-23 10:05 | AM.OFFVISMDC ---
Intake Vital Signs 04/23/25 10:05 Height 5 ft 8 in Weight 171 lb 4 oz BMI 26.0 BP 142/90 H Blood Pressure Location Lt brachial Position Sitting Respiration 16 Pulse 55 Pulse Source Pulse Oximeter Temp 97.0 F Temp Source Temporal Artery Scan Pulse Oximetry (%) 98 Oxygen Delivery Method Room Air Intake Visit Reasons: AWV Allergies No Known Allergies Allergy (Verified 04/23/25 10:08) Medication List - Last Reconciled 04/23/25 by Radha Redmond MD ascorbate calcium (vitamin C) 500 mg PO DAILY aspirin (Adult Aspirin Regimen) 81 mg PO .twice a week atorvastatin 20 mg PO DAILY cholecalciferol (vitamin D3) 25 mcg PO DAILY coenzyme Q10 (Co Q-10) 50 mg PO DAILY cyanocobalamin (vitamin B-12) 1,000 mcg PO DAILY metoprolol succinate ER 25 mg PO DAILY vitamin A 2,400 mcg PO DAILY vitamin E 200 units PO DAILY vitamin K2 100 mcg PO DAILY HPI AWV HPI Details [place] of care carb[facility] Dr. Nunez, urology Dr. Lee, [facility], cardiology [facility] Neurology Dr. Miles. BP at home is good and bradycardia at home to 42-55 but patient is asymptomatic REPLACED BY [facility] Medical History (Updated 04/23/25 @ 10:13 by Radha Redmond MD) Blood pressure elevated without history of HTN Hx of diplopia History of meningioma Fracture of right tibia and fibula DVT (deep venous thrombosis) Rosacea Psoriasis Allergic rhinitis Fatty liver Pulmonary nodule Vitamin D deficiency Peyronie's disease Feeling of incomplete bladder emptying Benign prostatic hyperplasia with lower urinary tract symptoms CAD (coronary artery disease) Hyperlipidemia Surgical History Hx of colonoscopy History of tonsillectomy History of prostate surgery S/P Mohs surgery for basal cell carcinoma Family History Father CVD (cardiovascular disease) Social History (Updated 04/23/25 @ 10:21 by Radha Redmond MD) Housing: House Alcohol intake: current Alcohol intake frequency: a few times a month Comment: twice a week 1 beer Patient Tobacco Use Status: Never used Tobacco e-Cigarette/Vaping Use: Never Used Second Hand Smoke Exposure: No Current occupational status: retired Cognitive needs: No Hearing needs: No Vision needs: Yes Questionnaire Medicare Wellness Checkup [age] What gender do you identify with?: male During the past 4 weeks, how much have you been bothered by emotional problems such as feeling anxious, depressed, irritable, sad or downhearted, and blue?: not at all During the past 4 weeks, has your physical & emotional health limited your social activities with family, friends, neighbors, or groups?: not at all During the past 4 weeks, how much bodily pain have you generally had?: no pain During the past 4 weeks, was someone available to help you if you needed & wanted help?: yes, as much as I wanted During the past 4 weeks, what was the hardest physical activity you could do for at least 2 minutes?: very heavy Can you get to places out of walking distance without help? (For eg., can you travel alone on buses, taxis or drive your car?): Yes Can you go shopping for groceries or clothes without someone's help?: Yes Can you prepare your own meals?: Yes Can you do your housework without help?: Yes Because of any health problems, do you need the help of another person with your personal care needs such as eating, bathing, dressing or getting around the house?: No Can you handle your own money without help?: Yes During the past 4 weeks, how would you rate your health in general?: excellent During the past 4 weeks how have things been going for you?: pretty well Are you having difficulties driving your car?: no Do you always fasten your seat belt when you are in a car?: yes, usually During past 4 weeks, have you been bothered by the following: never: Falling or dizzy when standing up, Sexual problems?, Trouble eating well?, Teeth or denture problems?, Problems using the telephone? and Tiredness or fatigue? Have you fallen 2 or more times in the past year?: No Are you afraid of falling?: No Are you a smoker?: no During the past 4 weeks, how many drinks of wine, beer, or other alcoholic beverages did you have?: 2-5 drinks per week Do you exercise for about 20 minutes 3 or more times a week?: yes, all the time Have you been given information to help with the following?: no: Hazards in your house that might hurt you? and no: Keeping track of your medications? How often do you have trouble taking medicines the way you have been told to take them?: I always take medicine as prescribed How confident are you that you can control & manage most of your health problems?: very confident What is your race?: White PHQ-9 Over the last 2 weeks, how often have you been bothered by any of the following problems? 1. Little interest or pleasure in doing things: not at all 2. Feeling down, depressed, or hopeless: not at all 3. Trouble falling or staying asleep, or sleeping too much: not at all 4. Feeling tired or having little energy: not at all 5. Poor appetite or overeating: not at all 6. Feeling bad about yourself - or that you are a failure or have let yourself or your family down: not at all 7. Trouble concentrating on things, such as reading the newspaper or watching television: not at all 8. Moving or speaking so slowly that other people could have noticed. Or the opposite - being so fidgety or restless that you have been moving around a lot more than usual: not at all 9. Thoughts that you would be better off or of hurting yourself in some way: not at all Total score: 0 Depression Screening Interpretation: Negative Depression Screening Done: Yes 24748 - PHQ-9 Billing: Yes Source: Developed by Drs. Seb Rausch, Bess Milton, Franklyn Lambert and colleagues, with an educational joni from [employer]. Review of Systems Const Denies poor appetite and Denies weakness Eyes Denies no additional complaints ENT Reports Normal hearing present, Denies dizziness, Denies nasal congestion, Denies tinnitus and Denies sore throat Card Denies chest pain, Denies syncope, Denies rapid heart rate and Denies dyspnea Resp Denies cough and Denies dyspnea GI Denies change in stool character, Reports constipation, Denies diarrhea, Denies nausea and Denies vomiting Denies dysuria and Denies urinary frequency Neuro Reports Normal hearing present, Denies confusion, Denies dizziness, Denies syncope and Denies weakness Psych Denies confusion Physical Exam Vital Signs: Last Vital Signs Temp 97.0 F 04/23/25 10:05 Pulse 55 04/23/25 10:05 Resp 16 07/22/25 10:05 BP 142/90 H 04/23/25 10:05 Pulse Ox 98 04/23/25 10:05 Oxygen Delivery Method Room Air 04/23/25 10:05 BMI result Body Mass Index 26.0 Const General: No confusion Orientation/consciousness: No confusion HEENT Head: Yes normocephalic Ears: external ears normal and TM's normal bilaterally Face and sinus: Yes normal facial exam Mouth: moist mucous membranes Throat: Yes tonsils normal Eyes Conjunctivae: conjunctivae normal Pupils: Equal, round and reactive pupils present and Pupil accommodation reflex normal Direct Ophthalmoscopy: normal light reflex Neck Neck: No lymphadenopathy Thyroid: Thyroid normal Chest Chest palpation & inspection: normal inspection of the chest Resp Effort & Inspection: normal respiratory effort and no audible wheezes Auscultation: clear to auscultation bilaterally, no crackles, no wheezes and lung sounds not diminished Cardio Rate: regular rate Rhythm: regular rhythm Peripheral pulses: radial pulses present and dorsalis pedis present GI Palpation (GI): no masses Auscultation: normal bowel sounds and normoactive bowel sounds Rectal Exam - Male: Yes deferred Skin General skin exam: no rashes or lesions noted Rashes: no rashes Neuro General: No confusion Cranial nerves: Yes Equal, round and reactive pupils present and Yes Normal hearing present Cognition (Neuro): normal cognition Gait exam (Neuro): Normal gait present Motor exam (neuro): 5/5 motor strength present throughout Deep tendon reflexes (DTR's): Right brachioradialis reflex intensity grade: 2+, Left brachioradialis reflex intensity grade: 2+, Right patellar reflex intensity grade: 2+ and Left patellar reflex intensity grade: 2+ Extrem General: No edema Assessment & Plan Assessment & Plan (1) Medicare annual wellness visit, subsequent: Code(s): Z00.00 - Encounter for general adult medical examination without abnormal findings Plan: Patient is advised to eat healthy, keep well hydrated, keep active and have adequate sleep. (2) CAD (coronary artery disease): Code(s): I25.10 - Atherosclerotic heart disease of [place] coronary artery without angina pectoris Qualifiers: Associated angina: without angina Coronary Disease-Associated Artery/Lesion type: [place] artery [place] vs. transplanted heart: [place] heart Qualified Code(s): I25.10 - Atherosclerotic heart disease of [place] coronary artery without angina pectoris Plan: Control the cholesterol, weight, blood pressure, diabetes on aspirin 81 mg once a day (3) Hypertension: Code(s): I10 - Essential (primary) hypertension Plan: Continue with blood pressure medication. Decrease salt intake and exercise takes metoprolol 25 mg once a day (4) Hyperlipidemia: Code(s): E78.5 - Hyperlipidemia, unspecified Qualifiers: Hyperlipidemia type: pure hypercholesterolemia Qualified Code(s): E78.00 - Pure hypercholesterolemia, unspecified Plan: Avoid fried foods, chicken skin, eggs, butter margarine, pastries and meat. Be it pork or beef they have a lot of cholesterol LDL goal of less than 70 and triglyceride of less than 150 on atorvastatin 20 mg once a day (5) Impaired glucose tolerance: Code(s): R73.02 - Impaired glucose tolerance (oral) Plan: Decrease the amount of carbohydrate intake, pasta, bread, rice and potatoes are all sugar and that is aside from all the sweet stuff, remember that fruits are good but they are Sweet also. (6) TSH elevation: Code(s): R79.89 - Other specified abnormal findings of blood chemistry Plan: Continue to monitor (7) Barretts esophagus: Code(s): K22.70 - Sagastume's esophagus without dysplasia Plan: Avoid the foods that causes that usually spicy foods, tomato products, juices, coffee, soda and foods that your sensitive to. After eating do not lie down, allow 3-4 hours before in lie down. And keep the head of bed above 30 degrees to avoid the acid from going up. Plan History of Present Illness The patient is a 70-year-old male presenting for an annual wellness visit. He has a history of coronary artery disease, hypercholesterolemia, and hypertension. The patient also has a history of meningioma and kyphosis, which he manages with posture exercises. The patient underwent a colonoscopy in January 2023, which revealed a tubular adenoma. His blood work from April 16 showed normal blood count, electrolytes, renal function, blood sugar, and hemoglobin A1c. His LDL cholesterol is at 66 mg/dL, meeting the goal of less than 70 mg/dL, and his PSA is normal. The patient reports no new diagnoses or surgeries since his last visit, except for a basal cell carcinoma removed from his back. He exercises regularly, engaging in vigorous activity every other day, and reports no dizziness or chest pain. He consumes alcohol occasionally and has never smoked or used recreational drugs. Health Maintenance - Colonoscopy performed in January 2023, revealing tubular adenoma - Blood work on April 16 showed normal results for blood count, electrolytes, renal function, blood sugar, and hemoglobin A1c - LDL cholesterol at 66 mg/dL, meeting the goal of less than 70 mg/dL - PSA levels normal - Mildly elevated TSH, monitored regularly - Regular exercise regimen, engaging in vigorous activity every other day - Occasional alcohol consumption, no smoking or recreational drug use Social History - Engages in vigorous exercise every other day - Consumes alcohol occasionally, approximately twice a week - No history of smoking or recreational drug use Review of Systems - Cardiovascular: Denies chest pain, palpitations, or syncope - Respiratory: Denies dyspnea, cough, or wheezing - Gastrointestinal: Denies dysphagia, nausea, vomiting, or changes in bowel habits - Neurological: Denies dizziness, headaches, or balance issues - Musculoskeletal: Reports kyphosis, denies joint pain or muscle weakness - Dermatological: Denies new skin lesions Physical Exam General: Cooperative, healthy appearing, comfortable, no acute distress and well developed Orientation: Patient oriented x3 Limitations: No limitations Head: Normal to inspection Ears: Hearing grossly normal bilaterally, a little bit of ear wax but nothing bad Nose: Normal external nose present Face and sinus: Normal facial exam Eyes: Appearance normal, both eyes and all related structures Neck: Normal visual inspection and Yes full ROM Respiratory: Normal respiratory effort and able to speak in complete sentences. Clear to auscultation bilaterally Cardiovascular: Regular rate and rhythm. Normal S1 and S2 GI: Normal to inspection. Soft to palpation and nontender Skin: No rashes or lesions noted, recent basal cell carcinoma removed from back Neuro: Patient oriented x3 Extremities: Normal to inspection, slight kyphosis noted Results - Labs: Normal blood count, electrolytes, renal function, blood sugar, hemoglobin A1c, LDL cholesterol at 66 mg/dL, PSA normal, mildly elevated TSH - Tests: Colonoscopy in January 2023 revealed tubular adenoma Plan The patient will continue with his current medication regimen, including aspirin 81 mg daily and atorvastatin 20 mg daily, to manage his coronary artery disease and hypercholesterolemia. Blood pressure management will continue with metoprolol 25 mg daily, and home blood pressure monitoring is advised to ensure control. The mildly elevated TSH will be monitored regularly, and no immediate intervention is required as it has been stable over the years. The patient is advised to maintain his exercise routine and healthy lifestyle, including moderate alcohol consumption and avoidance of smoking or recreational drugs. Regular follow-ups are recommended to monitor his cardiovascular health and manage any emerging health issues. A prescription for atorvastatin will be provided for a 90-day supply, and the patient is advised to contact the clinic for any medication refills or concerns. Patient was informed and verbally consented to the use of an ambient scribe for clinic note documentation during this visit. Discussion Notes During the visit, we discussed the patient's current health status and management of his chronic conditions, including coronary artery disease and hypercholesterolemia. We reviewed his medication regimen and emphasized the importance of adherence to prescribed therapies, including aspirin and atorvastatin. The patient was informed about the stability of his mildly elevated TSH and the plan to continue monitoring it without immediate intervention. We also discussed lifestyle modifications, including maintaining regular exercise and moderate alcohol consumption, while avoiding smoking and recreational drugs. The patient was advised to continue home blood pressure monitoring and to report any significant changes or concerns. A follow-up plan was established to ensure ongoing management of his cardiovascular health, and a prescription for atorvastatin was arranged for a 90-day supply. Patient Instructions - Continue taking aspirin 81 mg and atorvastatin 20 mg daily as prescribed - Monitor blood pressure at home regularly and report any significant changes - Maintain regular exercise routine and healthy lifestyle - Limit alcohol consumption and avoid smoking or recreational drugs - Schedule regular follow-ups to monitor health status - Contact the clinic for medication refills or concerns Medications: Refilled atorvastatin Needs to call cardiology [phone] for appointment for more refills. 20 mg PO DAILY 90 tabs 2RF Quality Reporting (2019) Depression/Bipolar (159/160/161/177) PHQ-9: Total score: 0 Coding Level of Care Code Medicare Subsequent (G0439) Diagnoses Medicare annual wellness visit, subsequent Z00.00 Coronary artery disease involving [place] coronary artery of [place] heart without angina pectoris I25.10 Associated angina: without angina Coronary Disease-Associated Artery/Lesion type: [place] artery [place] vs. transplanted heart: [place] heart Hypertension I10 Pure hypercholesterolemia E78.00 Hyperlipidemia type: pure hypercholesterolemia Impaired glucose tolerance R73.02 TSH elevation R79.89 Barretts esophagus K22.70 Additional Codes PHQ-9 - 51007 - PHQ-9 Billing: Yes ([id number])
--- OUTSIDE RECORDS SUMMARY | 2025-04-23 10:58 | XMS_ITS | Clinical Summary ---
Author Organization [facility] Address [address] [place] [id number] Phone Care Team Providers Care Facility Maintenance Supervisor Name Role Phone Radha Redmond MD Primary Care Provider [phone] Allergies No known active allergies Medications atorvastatin (LIPITOR) 20 MG tablet Take 20 mg by mouth daily. 01/23/2022 Active tamsulosin (FLOMAX) 0.4 mg Cap Take 0.4 mg by mouth nightly at bedtime. 01/23/2022 Active vitamin E 400 UNIT capsule Take 400 Units by mouth daily. Active cholecalciferol (VITAMIN D3) 25 MCG (1,000 unit) tablet Take 1,000 Units by mouth daily. Active Medication-Free Text Vitamin A 2400 mcg every other day Active VITAMIN K2 ORAL Take 100 mcg by mouth every other day. Active coenzyme Q10 100 mg capsule Take 100 mg by mouth daily. Active Medication-Free Text once a week. Vitamin B6 - B12 2mg/1000mcg Active aspirin 81 mg Cap Take by mouth every 3 (three) days. Active Active Problems No known active problems Social History Tobacco Use Types Packs/Day Years Used Date Smoking Tobacco: Never Smokeless Tobacco: Never Education Answer Date Recorded Are you interested in more education? Not on kay e 01/29/2023 Are you concerned about learning? Not on file 01/29/2023 No 01/29/2023 No 01/29/2023 Digital Access Answer Date Recorded No 02/27/2023 No 02/27/2023 No 02/27/2023 Reliable internet access at home? Not on file 02/27/2023 Device with a working camera? Not on file Comments Unknown Sex and Gender Information Value Date Recorded Sex Assigned at Choose not to disclose 10/2021 1:11 PM EDT Legal Sex Male 1:00 PM EDT Gender Identity Choose not to disclose 1:11 PM EDT Sexual Orientation Choose not to disclose 2021 1:11 PM EDT Last Filed Vital Signs Vital Sign Reading Time Taken Comments Blood Pressure 155/94 03/08/2022 10:09 AM EDT Pulse 67 03/08/2022 10:09 AM EDT Temperature 37.2 C (98.9 F) 03/08/2022 10:09 AM EDT Respiratory Rate 16 03/08/2022 10:0 9 AM EDT Oxygen Saturation 98% 03/08/2022 10: 09 AM EDT Inhaled Oxygen Concentration - - Weight 78.4 kg (172 lb 14.4 oz) 022 10:09 AM EDT Height 175.3 cm (5' 9 ) 03/08/2022 10:0 9 AM EDT Body Mass Index 25.53 03/08/2022 10:09 AM EDT Plan of Treatment Health Maintenance Due Date Last Done Comments LIPID PANEL 1953 DEPRESSION SCREENING 1965 HEPATITIS C SCREENING 1971 COLOGUARD 1998 COLONOSCOPY 1998 COLORECTAL CANCER SCREENING 1998 FIT TEST 1998 FOBT 1998 SIGMOIDOSCOPY 1998 VIRTUAL COLONOSCOPY 1998 COVID-19 VACCINE ( season) 2024 02/01/2022, 07/07/2021, 12/14/2020, Additional history exists RSV VACCINE (1 - 1-dose 75+ series) 2028 Adult Td,Tdap Booster 06/16/2030 06/16/2020, 011 PNEUMOCOCCAL VACCINES (50+ years) Completed 03/26/2020, 01/22/2019 ZOSTER VACCINES Completed 09/06/2020, 06/03, 07/22/2016, Additional history exists SMOKING STATUS SCREENING (Once After 26 Yrs) Completed 03/08/2022 HEPATITIS A VACCINES Aged Out No long er eligible based on patient's age to complete this topic HIB VACCINES Aged Out No longer eligi ble based on patient's age to complete this topic MENINGOCOCCAL VACCINES (ACWY) Aged Out No longer eligible based on patient's age to complete this topic MENINGOCOCCAL VACCINES (B) Aged Out N o longer eligible based on patient's age to complete this topic Medical Devices Not on file Insurance [employer] Say-Hey [employer]ORS Say-Hey [employer] Say-Hey [employer] [place] [address] Say-Hey [employer] Say-Hey [employer] Say-Hey [employer]AT[employer] Care Teams Facility Maintenance Supervisor Relationship Specialty Start Date End Date Radha Redmond MD [address] [place] [phone] PCP - General Internal Medicine 03/03/22 Additional Source Comments The information contained in this document represents components of the legal health record. It is not the complete legal health record.[facility]
--- OUTSIDE RECORDS SUMMARY | 2025-04-23 10:58 | XMS_ITS | Clinical Summary ---
Author Organization [facility] Address [address] [place] [address] Care Team Providers Care Reprint Sorter Name Role Phone Unavailable Primary Care Provider [...]
--- OUTSIDE RECORDS SUMMARY | 2025-04-23 10:58 | XMS_ITS | Patient Health Record ---
Author Organization [facility] Address [address] [place] [id number] Care Team Providers Care Concert Manager Name Role Phone Radha Redmond MD Primary Care Provider Seb Whelan Unavailable [phone] Reason For Referral No Information Medications Medication [...] Problem Status W/U Status Risk Notes Problem 664190789 Encounter for screening for malignant neoplasm of colon (Z12.11) Active confirmed Problem 174242087 History of adenomatous polyp of colon (Z86.010) Active confirmed Problem Stricture of esophagus (24853386) Esophageal obstruction (K22.2) Active confirmed Problem Diverticular disease of colon (151868921) Diverticulosis of large intestine without perforation or abscess without bleeding (K57.30) Active confirmed Problem Screening for malignant neoplasm of rectum (218281588) Encounter for screening for malignant neoplasm of rectum (Z12.12) Active confirmed Problem Gastroesophageal reflux disease (016574904) Gastroesophageal reflux disease (K21.9) Active confirmed Problem 16377552 Preprocedural examination (Z01.818) Active confirmed Problem Gastritis (4961936) Gastritis (K29.70) Active c onfirmed Problem 65936969 Esophageal dysphagia (R13.19) Active confirmed Plan Of Treatment Future Test Test Name Order Date COLONOSCOPY 08/18/2011 COLONOSCOPY 09/02/2016 UPPER GI ENDOSCOPY BALLOOON DILATION OF ESOPH 11/26/2022 COLONOSCOPY 11/26/2022 Insurance Providers Payer Name Payer Address Payer Phone Subscriber Number Group Number Insured Name Patient Relationship to Insured Coverage Start Date Coverage End Date [employer] [place] [address] [address] [place] [address] [id number] Self - patient is the insured Medical (General) History Medical History History ICD Code Colonoscopy 09-29-2011 and --tubular adenomas, mild diverticulosis, small internal hemorrhoids Acne rosacea Denies NM,DM,CVA,Lung disease,renal dise ase BPH Negative followup screening colonoscopy in November of 2016 Meningioma of brain being fo llowed with periodic imaging studies. He has not required any surgery or other treatments, Hyperlipidemia Surgical History Surgery Date(Month/Year) Skin cancer on face, back legs--basal ce ll
== END 2025-04-23 10:38 | disposition home or self-care (01) ==
LOC: HO.HMCH 10:02
PROVIDERS: PCP Internal Medicine; Visit Provider Internal Medicine
DX: Z00.00 Encounter for general adult medical examination without abnormal findings (principal); I25.10 Atherosclerotic heart disease of native coronary artery without angina pectoris; I10 Essential (primary) hypertension; E78.00 Pure hypercholesterolemia, unspecified; R73.02 Impaired glucose tolerance (oral); R79.89 Other specified abnormal findings of blood chemistry; K22.70 Barrett's esophagus without dysplasia

== ENCOUNTER → 2025-04-23 10:01 | Outpatient (BNVA) | payer MEDICARE, SELFPAY | PROVIDERS: PCP Internal Medicine; Visit Provider Internal Medicine | DX: Z00.00 Encounter for general adult medical examination without abnormal findings (principal); I25.10 Atherosclerotic heart disease of native coronary artery without angina pectoris; I10 Essential (primary) hypertension; R73.02 Impaired glucose tolerance (oral); E78.00 Pure hypercholesterolemia, unspecified; R79.89 Other specified abnormal findings of blood chemistry; K22.70 Barrett's esophagus without dysplasia | CPT/HCPCS: 96127 ==